=== PATIENT | female | born 1960 | race Caucasian/White ===

== ENCOUNTER 2017-04-27 13:45 | Emergency (ER) | payer OTHER ==
[~2017-04-27] VITALS: Ht 160 cm; Wt 98.9 kg
[~2017-04-27 13:45] MED LIST: AMLODIPINE BESYL5 MG PO; AMLODIPINE-BEN1 EAC4 PO; ATORVASTATIN CA20 MG PO; CITALOPRAM HBR20 MG PO; DIVALPROEX SOD250 M1 PO; DIVALPROEX SOD500 M1 PO; FLEXERIL5 MG PO; GABAPENTIN100 MG PO; GLYBURIDE5 MG PO; HYDROCODON-ACE1 EAC7 PO; KLOR-CON 1010 ME1 PO; LEVO-T88 MCG PO; LEVOTHYROXINE150 MCG PO; LO-DOSE ASPIRIN81 M1 PO; LOPRESSOR100 M1 PO; MELOXICAM7.5 MG PO; METFORMIN HCL500 MG PO; METOPROLOL SUCC25 MG PO; OXYCODONE-APAP1 EACH PO; SEROQUEL XR150 MG PO; SIMVASTATIN20 MG PO; TRAZODONE HCL50 MG PO; VITAMIN D-32000 UNI1 PO; ZESTORETIC 20-1 EAC1 PO
[2017-04-27] MEDS ORDERED: TRAZODONE HCL50 MG PO (15:24)
[2017-04-27] MEDS ORDERED: NAPROSYN500 MG PO (16:39)
[2017-04-27 17:26] VITALS: BP 112/61
== END 2017-04-27 17:26 | disposition home or self-care (01) ==
LOC: EME 13:45
DX: S90.31XA Contusion of right foot, initial encounter (principal); V09.1XXA Pedestrian injured in unspecified nontraffic accident, initial encounter; Y93.K1 Activity, walking an animal; E11.9 Type 2 diabetes mellitus without complications; Z79.84 Long term (current) use of oral hypoglycemic drugs
CPT/HCPCS: 73630; 99281; 99283

== ENCOUNTER 2017-12-08 09:47 | Emergency (ER) | payer OTHER ==
[~2017-12-08] VITALS: Ht 160 cm; Wt 95.6 kg
[~2017-12-08 09:47] MED LIST changes: +NAPROSYN500 MG PO
[2017-12-08 10:10] LABS: HEMATOCRIT 33.3 % (36.0-46.0); HEMOGLOBIN 11.1 G/DL (11.9-15.5); MCH 31.4 PG (29.0-34.0); MCHC 33.3 G/DL (30.0-36.0); MCV 94.3 FL (83-99); PLATELET COUNT 79 K/uL (156-360); RBC DIS.WIDTH-CV 15.2 % (11.8-14.6); RBC DIS.WIDTH-SD 52.7 % (39-53); RED BLOOD COUNT 3.53 M/uL (3.80-5.20); WHITE BLOOD COUNT 5.6 K/uL (4.1-10.2)
[2017-12-08 10:22] LABS: CHLORIDE 108 mEq/L (99-109); POTASSIUM 3.7 mEq/L (3.7-5.4); SODIUM 139 mEq/L (136-147)
[2017-12-08 10:24] LABS: GLUCOSE 100 mg/dL (70-99)
[2017-12-08 10:28] LABS: CREATININE 0.7 mg/dL (0.6-1.3); GFR ESTIMATE (CALCULATED) > 59 mL/min/
[2017-12-08 10:29] LABS: UREA NITROGEN (BUN) 13 mg/dL (9-23)
[2017-12-08 11:03] LABS: TROP-I INTERPRETATION NEGATIVE; TROPONIN-I < 0.01 ng/mL (0.0-0.30)
[2017-12-08 14:16] VITALS: BP 112/54
== END 2017-12-08 14:16 | disposition home or self-care (01) ==
LOC: EME 09:47
DX: R42 Dizziness and giddiness (principal); E78.5 Hyperlipidemia, unspecified; I10 Essential (primary) hypertension; E11.9 Type 2 diabetes mellitus without complications; Z79.84 Long term (current) use of oral hypoglycemic drugs; K74.60 Unspecified cirrhosis of liver; F32.9 Major depressive disorder, single episode, unspecified; F41.9 Anxiety disorder, unspecified; Z88.2 Allergy status to sulfonamides
CPT/HCPCS: 70450; 71046; 80048; 84484; 85027; 93005; 99281; 99285

== ENCOUNTER → 2018-03-03 | Outpatient (CLI) | payer OTHER ==
[~2018-03-03] MED LIST changes: +ALDACTONE50 MG PO; +COLESTIPOL HCL1 GM PO; +CONSTULOSE10 GM/15 M PO; +FEROSUL325 MG PO; +FIORICET 50-301 EAC1 PO; +LASIX40 MG PO; +LEVOXYL100 MCG PO; +NORTRIPTYLINE H25 MG PO; +OMEPRAZOLE40 M1 PO; +RANITIDINE HCL300 MG PO; +REQUIP0.25 MG PO; +ZOFRAN ODT4 MG PO
[2018-03-03 13:45] LABS: TYPE OF FLUID PARACENTESIS
[2018-03-03 14:38] LABS: APPEARANCE CLEAR-YELLOW; BODY FLUID EOSINOPHILS 0 % (0-25); BODY FLUID RBC'S < 1000 /MM^3 (0-100); BODY FLUID WBC'S 249 /MM^3 (0-500); MONONUCLEAR WBC'S 88 %; POLYNUCLEAR WBC'S 12 % (0-25)
== END | disposition home or self-care (01) ==
LOC: RAD 12:03
PROVIDERS: Internal Medicine Gastroenterology
PROC: 0W9G3ZZ Drainage of Peritoneal Cavity, Percutaneous Approach (ICD-10-PCS; principal; 2018-03-03)
DX: R18.8 Other ascites (principal)
CPT/HCPCS: 49083; 87070; 87205; 88108; 88305; 89051

== ENCOUNTER 2018-03-05 15:30 | Emergency (ER) | payer OTHER ==
[~2018-03-05] VITALS: Ht 160 cm; Wt 107.1 kg
[~2018-03-05 15:30] MED LIST changes: -FIORICET 50-301 EAC1 PO; -ZOFRAN ODT4 MG PO
[2018-03-05 16:17] LABS: HEMATOCRIT 27.3 % (36.0-46.0); HEMOGLOBIN 9.4 G/DL (11.9-15.5); MCH 30.1 PG (29.0-34.0); MCHC 34.4 G/DL (30.0-36.0); MCV 87.5 FL (83-99); PLATELET COUNT 87 K/uL (156-360); RED BLOOD COUNT 3.12 M/uL (3.80-5.20); WHITE BLOOD COUNT 9.9 K/uL (4.1-10.2)
[2018-03-05 16:35] LABS: ALBUMIN 2.9 g/dL (3.2-4.8); CHLORIDE 94 mEq/L (99-109); SODIUM 127 mEq/L (136-147)
[2018-03-05 16:37] LABS: GLUCOSE 123 mg/dL (70-99)
[2018-03-05 16:39] LABS: TOTAL BILIRUBIN 5.2 mg/dL (0.0-1.0)
[2018-03-05 16:41] LABS: ALKALINE PHOSPHATASE 159 IU/L (3-129); CREATININE 0.8 mg/dL (0.6-1.3); GFR ESTIMATE (CALCULATED) > 59 mL/min/
[2018-03-05 16:42] LABS: UREA NITROGEN (BUN) 9 mg/dL (9-23)
[2018-03-05 16:43] LABS: AST (GOT) 53 IU/L (2-34)
[2018-03-05 16:44] LABS: ALT (GPT) 32 IU/L (3-49); LIPASE 59 U/L (1.0-51.0)
[2018-03-05] MEDS ORDERED: FIORICET 50-301 EAC1 PO ×2 (17:29→17:31)
[2018-03-05] MEDS ORDERED: ZOFRAN ODT4 MG PO ×2 (17:29→17:31)
[2018-03-05 17:44] VITALS: BP 132/71
== END 2018-03-05 17:50 | disposition home or self-care (01) ==
LOC: EME 15:30
PROVIDERS: Nurse Practitioner Acute Care
DX: R18.8 Other ascites (principal); K72.90 Hepatic failure, unspecified without coma; Z76.82 Awaiting organ transplant status; K74.60 Unspecified cirrhosis of liver; F32.9 Major depressive disorder, single episode, unspecified; E78.5 Hyperlipidemia, unspecified; E11.9 Type 2 diabetes mellitus without complications; Z79.84 Long term (current) use of oral hypoglycemic drugs; I10 Essential (primary) hypertension; F41.9 Anxiety disorder, unspecified; Z88.2 Allergy status to sulfonamides
CPT/HCPCS: 74176; 80053; 83690; 85027; 99281; 99283

== ENCOUNTER 2018-03-12 01:57 | Inpatient (IN) | payer OTHER ==
[~2018-03-12] VITALS: Ht 160 cm; Wt 95.0 kg
[~2018-03-12 01:57] MED LIST changes: +FIORICET 50-301 EAC1 PO; +ZOFRAN ODT4 MG PO
[2018-03-12 02:38] LABS: CHLORIDE 91 mEq/L (99-109); POTASSIUM 4.3 mEq/L (3.7-5.4); SODIUM 124 mEq/L (136-147)
[2018-03-12 02:39] LABS: HEMATOCRIT 29.1 % (36.0-46.0); MCH 29.7 PG (29.0-34.0); MCHC 34.4 G/DL (30.0-36.0); MCV 86.4 FL (83-99); RBC DIS.WIDTH-CV 20.2 % (11.8-14.6); RBC DIS.WIDTH-SD 62.1 % (39-53); RED BLOOD COUNT 3.37 M/uL (3.80-5.20); WHITE BLOOD COUNT 9.5 K/uL (4.1-10.2)
[2018-03-12 02:40] LABS: GLUCOSE 133 mg/dL (70-99); TOTAL PROTEIN 6.4 g/dL (6.4-8.3)
[2018-03-12 02:43] LABS: ALKALINE PHOSPHATASE 174 IU/L (3-129); CREATININE 0.8 mg/dL (0.6-1.3); GFR ESTIMATE (CALCULATED) > 59 mL/min/
[2018-03-12 02:45] LABS: AST (GOT) 67 IU/L (2-34); UREA NITROGEN (BUN) 16 mg/dL (9-23)
[2018-03-12 02:46] LABS: ALT (GPT) 38 IU/L (3-49)
[2018-03-12 02:47] LABS: LIPASE 82 U/L (1.0-51.0)
[2018-03-12 02:49] LABS: TOTAL BILIRUBIN 6.3 mg/dL (0.0-1.0); TROP-I INTERPRETATION NEGATIVE; TROPONIN-I < 0.01 ng/mL (0.0-0.30)
[2018-03-12 03:59] LABS: INTER. NORMALIZED RATIO 1.6
[2018-03-12 04:02] LABS: PTT 33.3 SEC (25-37)
[2018-03-12 04:32] LABS: PLATELET COUNT 59 K/uL (156-360)
[2018-03-12 05:30] LABS: VALPROIC ACID (DEPAKOTE) < 3.0 MCG/ML (50-100)
[2018-03-12 05:36] LABS: HDL CHOLESTEROL 26 MG/DL (Desirable>=50); LDL CHOLESTEROL 78 mg/dL (Desirable<100); NON-HDL CHOLESTEROL 92 mg/dL (Desirable<160); TOTAL CHOLESTEROL 118 mg/dL (Desirable<200); TRIGLYCERIDES 69 MG/DL (Normal: <150)
[2018-03-12 05:58] VITALS: BP 131/64
[2018-03-12 07:33] LABS: BILIRUBIN NEGATIVE; BLOOD NEGATIVE; COLOR AMBER ((YELLOW)); GLUCOSE (STRIP) NEGATIVE; KETONES NEGATIVE; LEUKOCYTES NEGATIVE; NITRITE NEGATIVE; PROTEIN (STRIP) NEGATIVE; SPECIFIC GRAVITY 1.016 (1.000-1.030)
[2018-03-12 07:35] LABS: APPEARANCE CLEAR ((CLEAR)); UCUL ADDED? NO
[2018-03-12 07:54] VITALS: BP 125/65
[2018-03-12 09:58] LABS: HEMOGLOBIN A1c (GLYCOHEMOGLOB) 4.8 % (Below 5.7)
[2018-03-12] MEDS ORDERED: XIFAXAN550 MG PO (11:57)
[2018-03-12] MEDS ORDERED: SEROQUEL100 MG PO (11:58)
[2018-03-12] MEDS ORDERED: REGLAN5 MG PO (11:58)
[2018-03-12] MEDS ORDERED: SEROQUEL50 MG PO (11:59)
[2018-03-12] MEDS ORDERED: OXCARBAZEPINE150 MG PO (12:02)
[2018-03-12] MEDS ORDERED: GABAPENTIN300 MG PO ×2 (12:03)
[2018-03-12] MEDS ORDERED: LOTREL 10/41 CAPSULE PO (12:11)
[2018-03-12 12:12] VITALS: BP 118/56
[2018-03-12 13:04] LABS: TROP-I INTERPRETATION NEGATIVE; TROPONIN-I 0.01 ng/mL (0.0-0.30)
[2018-03-12 13:40] VITALS: BP 117/56
[2018-03-12 16:15] VITALS: BP 115/58
[2018-03-12 18:29] LABS: TROP-I INTERPRETATION NEGATIVE; TROPONIN-I < 0.01 ng/mL (0.0-0.30)
[2018-03-12 21:00] VITALS: BP 121/58
[2018-03-13 00:45] VITALS: BP 125/60
[2018-03-13 03:11] VITALS: BP 106/50
[2018-03-13 08:11] LABS: HEMATOCRIT 25.8 % (36.0-46.0); HEMOGLOBIN 8.7 G/DL (11.9-15.5); MCH 29.8 PG (29.0-34.0); MCHC 33.7 G/DL (30.0-36.0); MCV 88.4 FL (83-99); RBC DIS.WIDTH-CV 20.5 % (11.8-14.6); RBC DIS.WIDTH-SD 65.7 % (39-53); RED BLOOD COUNT 2.92 M/uL (3.80-5.20); WHITE BLOOD COUNT 7.8 K/uL (4.1-10.2)
[2018-03-13 08:31] LABS: BASOPHIL (%) 0.4 % (0-1); EOSINOPHIL (%) 0.6 % (0-5); EOSINOPHIL COUNT 0.1 K/uL (0-0.3); IMMATURE GRANULOCYTE (%) 0.5 % (0.0-0.7); LYMPHOCYTE (%) 26.8 % (15-42); LYMPHOCYTE COUNT 2.1 K/uL (1.0-2.8); MONOCYTE (%) 16.5 % (3-12); MONOCYTE COUNT 1.3 K/uL (0-0.8); NEUTROPHIL (%) 55.2 % (45-76); NEUTROPHIL COUNT 4.3 K/uL (1.8-6.4)
[2018-03-13 08:32] LABS: CHLORIDE 94 MEQ/L (99-109); CREATININE 0.8 MG/DL (0.6-1.3); GFR ESTIMATE (CALCULATED) > 59 mL/min/; GLUCOSE 104 mg/dL (70-99); PHOSPHORUS 2.7 mg/dL (2.5-4.9); SODIUM 125 MEQ/L (136-147); UREA NITROGEN (BUN) 11 mg/dL (9-23)
[2018-03-13 08:33] VITALS: BP 106/53
[2018-03-13 08:56] LABS: ANISOCYTOSIS 2+; MACROCYTES 2+; PLAT.SUFFICIENCY DECREASED
[2018-03-13 09:48] LABS: ALKALINE PHOSPHATASE 118 IU/L (3-129); ALT (GPT) 29 IU/L (3-49); AST (GOT) 56 IU/L (2-34); DIRECT BILIRUBIN 2.2 mg/dL (0.0-0.3); TOTAL BILIRUBIN 6.4 MG/DL (0.0-1.0); TOTAL PROTEIN 5.7 G/DL (6.4-8.3)
[2018-03-13 12:45] VITALS: BP 109/53
[2018-03-13 16:12] VITALS: BP 118/56
[2018-03-13 16:14] LABS: IRON 50 MCG/DL (35-150); TRANSFERRIN (TIBC) 215.9 mg/dL (215-380); TRANSFERRIN SATUR. 23 % (20-55)
[2018-03-13 19:55] VITALS: BP 120/60
[2018-03-14] VITALS (8 sets, daily range): BP systolic 94–122; BP diastolic 51–63
[2018-03-14 05:48] LABS: HEMATOCRIT 23.8 % (36.0-46.0); HEMOGLOBIN 7.9 G/DL (11.9-15.5); MCH 29.7 PG (29.0-34.0); MCHC 33.2 G/DL (30.0-36.0); MCV 89.5 FL (83-99); RBC DIS.WIDTH-CV 20.3 % (11.8-14.6); RBC DIS.WIDTH-SD 66.4 % (39-53); RED BLOOD COUNT 2.66 M/uL (3.80-5.20); WHITE BLOOD COUNT 7.4 K/uL (4.1-10.2)
[2018-03-14 06:10] LABS: CHLORIDE 94 MEQ/L (99-109); CREATININE 0.8 MG/DL (0.6-1.3); GFR ESTIMATE (CALCULATED) > 59 mL/min/; GLUCOSE 103 mg/dL (70-99); POTASSIUM 3.8 MEQ/L (3.7-5.4); SODIUM 125 MEQ/L (136-147); UREA NITROGEN (BUN) 11 mg/dL (9-23)
[2018-03-14 06:50] LABS: IMM.PLATELET FRACTION 11.2 (1-7); PLAT.SUFFICIENCY DECREASED; PLATELET CLUMPS PRESENT - PLATELET COUNTS APPEARS DECREASED
[2018-03-14 06:53] LABS: PLATELET COUNT UNABLE TO REPORT K/uL (156-360)
[2018-03-15 02:38] LABS: STOOL OCCULT BLD 1ST SPECIMEN POSITIVE
[2018-03-15 03:21] VITALS: BP 107/51
[2018-03-15 05:11] LABS: BASOPHIL (%) 0.8 % (0-1); BASOPHIL COUNT 0.1 K/uL (0-0.1); EOSINOPHIL (%) 2.4 % (0-5); EOSINOPHIL COUNT 0.2 K/uL (0-0.3); HEMATOCRIT 23.3 % (36.0-46.0); HEMOGLOBIN 7.8 G/DL (11.9-15.5); IMMATURE GRANULOCYTE (%) 0.8 % (0.0-0.7); LYMPHOCYTE (%) 26.8 % (15-42); LYMPHOCYTE COUNT 1.7 K/uL (1.0-2.8); MCH 29.8 PG (29.0-34.0); MCHC 33.5 G/DL (30.0-36.0); MCV 88.9 FL (83-99); MONOCYTE (%) 15.6 % (3-12); NEUTROPHIL (%) 53.6 % (45-76); NEUTROPHIL COUNT 3.4 K/uL (1.8-6.4); RBC DIS.WIDTH-CV 20.4 % (11.8-14.6); RBC DIS.WIDTH-SD 65.7 % (39-53); RED BLOOD COUNT 2.62 M/uL (3.80-5.20); WHITE BLOOD COUNT 6.3 K/uL (4.1-10.2)
[2018-03-15 05:23] LABS: PLATELET COUNT 52 K/uL (156-360)
[2018-03-15 05:38] LABS: ALBUMIN 2.4 G/DL (3.2-4.8); CHLORIDE 96 MEQ/L (99-109); CREATININE 0.7 MG/DL (0.6-1.3); GFR ESTIMATE (CALCULATED) > 59 mL/min/; GLUCOSE 103 mg/dL (70-99); PHOSPHORUS 2.5 mg/dL (2.5-4.9); POTASSIUM 3.9 MEQ/L (3.7-5.4); SODIUM 125 MEQ/L (136-147); UREA NITROGEN (BUN) 10 mg/dL (9-23)
[2018-03-15 09:20] VITALS: BP 104/59
[2018-03-15 12:28] VITALS: BP 112/56
[2018-03-15 15:39] VITALS: BP 150/63
[2018-03-15 20:45] VITALS: BP 111/85
[2018-03-15 23:11] VITALS: BP 105/68
[2018-03-16 03:20] VITALS: BP 107/69
[2018-03-16 05:29] LABS: BASOPHIL (%) 0.7 % (0-1); BASOPHIL COUNT 0.1 K/uL (0-0.1); EOSINOPHIL (%) 1.4 % (0-5); EOSINOPHIL COUNT 0.1 K/uL (0-0.3); HEMATOCRIT 25.3 % (36.0-46.0); HEMOGLOBIN 8.2 G/DL (11.9-15.5); IMMATURE GRANULOCYTE (%) 0.6 % (0.0-0.7); LYMPHOCYTE (%) 23.2 % (15-42); LYMPHOCYTE COUNT 1.6 K/uL (1.0-2.8); MCH 29.4 PG (29.0-34.0); MCHC 32.4 G/DL (30.0-36.0); MCV 90.7 FL (83-99); MONOCYTE (%) 16.1 % (3-12); MONOCYTE COUNT 1.1 K/uL (0-0.8); PLATELET COUNT 54 K/uL (156-360); RBC DIS.WIDTH-CV 20.1 % (11.8-14.6); RBC DIS.WIDTH-SD 66.4 % (39-53); RED BLOOD COUNT 2.79 M/uL (3.80-5.20); WHITE BLOOD COUNT 6.9 K/uL (4.1-10.2)
[2018-03-16 05:50] LABS: ALBUMIN 2.5 G/DL (3.2-4.8); CHLORIDE 96 MEQ/L (99-109); CREATININE 0.8 MG/DL (0.6-1.3); GFR ESTIMATE (CALCULATED) > 59 mL/min/; GLUCOSE 105 mg/dL (70-99); PHOSPHORUS 3.3 mg/dL (2.5-4.9); POTASSIUM 4.2 MEQ/L (3.7-5.4); SODIUM 127 MEQ/L (136-147); UREA NITROGEN (BUN) 11 mg/dL (9-23)
[2018-03-16 07:48] LABS: ALBUMIN 2.5 G/DL (3.2-4.8); ALKALINE PHOSPHATASE 102 IU/L (3-129); ALT (GPT) 27 IU/L (3-49); AST (GOT) 46 IU/L (2-34); CHLORIDE 96 MEQ/L (99-109); CREATININE 0.8 MG/DL (0.6-1.3); GFR ESTIMATE (CALCULATED) > 59 mL/min/; GLUCOSE 105 mg/dL (70-99); POTASSIUM 4.2 MEQ/L (3.7-5.4); SODIUM 127 MEQ/L (136-147); TOTAL PROTEIN 5.1 G/DL (6.4-8.3); UREA NITROGEN (BUN) 11 mg/dL (9-23)
[2018-03-16 07:49] LABS: TOTAL BILIRUBIN 5.1 MG/DL (0.0-1.0)
[2018-03-16 08:19] VITALS: BP 113/59
[2018-03-16 11:41] VITALS: BP 106/53
[2018-03-16 14:45] VITALS: BP 99/57
[2018-03-16 16:25] VITALS: BP 111/58
[2018-03-16 20:00] VITALS: BP 105/55
[2018-03-17 00:07] VITALS: BP 125/55
[2018-03-17 04:10] VITALS: BP 100/57
[2018-03-17 05:48] LABS: BASOPHIL (%) 0.9 % (0-1); BASOPHIL COUNT 0.1 K/uL (0-0.1); EOSINOPHIL (%) 2.3 % (0-5); EOSINOPHIL COUNT 0.1 K/uL (0-0.3); HEMATOCRIT 24.1 % (36.0-46.0); IMMATURE GRANULOCYTE (%) 0.4 % (0.0-0.7); LYMPHOCYTE (%) 26.4 % (15-42); LYMPHOCYTE COUNT 1.4 K/uL (1.0-2.8); MCH 30.3 PG (29.0-34.0); MCHC 33.2 G/DL (30.0-36.0); MCV 91.3 FL (83-99); MONOCYTE (%) 17.5 % (3-12); MONOCYTE COUNT 0.9 K/uL (0-0.8); NEUTROPHIL (%) 52.5 % (45-76); NEUTROPHIL COUNT 2.8 K/uL (1.8-6.4); RBC DIS.WIDTH-CV 20.4 % (11.8-14.6); RBC DIS.WIDTH-SD 68.3 % (39-53); RED BLOOD COUNT 2.64 M/uL (3.80-5.20); WHITE BLOOD COUNT 5.3 K/uL (4.1-10.2)
[2018-03-17 06:22] LABS: ALBUMIN 2.2 G/DL (3.2-4.8); CHLORIDE 97 MEQ/L (99-109); CREATININE 0.9 MG/DL (0.6-1.3); GFR ESTIMATE (CALCULATED) > 59 mL/min/; GLUCOSE 88 mg/dL (70-99); PHOSPHORUS 2.6 mg/dL (2.5-4.9); POTASSIUM 3.7 MEQ/L (3.7-5.4); SODIUM 130 MEQ/L (136-147); UREA NITROGEN (BUN) 11 mg/dL (9-23)
[2018-03-17 07:43] LABS: IMM.PLATELET FRACTION 8.8 (1-7); PLATELET CLUMPS PRESENT - PLATELET COUNTS APPEARS DECREASED; PLATELET COUNT UNABLE TO REPORT K/uL (156-360)
[2018-03-17 07:56] VITALS: BP 119/64
[2018-03-17] MEDS ORDERED: FUROSEMIDE40 MG PO (11:03)
[2018-03-17] MEDS ORDERED: KRISTALOSE20 GM PO (14:51)
== END 2018-03-17 12:53 | disposition home or self-care (01) | DRG 442 ==
LOC: EME → EDBD 01:57 → 5SOUTH 03:41 → 4EAST 03:41 → EDOF 03:41 → ENRESERV 03:42 → 5SOUTH 05:28 → ENRESERV 12:28 → 4EAST 13:38 → ENRESERV 03-16 17:54 → 5SOUTH 03-16 21:55 → ENRESERV 03-16 21:58 → ENPENDDIS 03-17 11:53 → 5SOUTH 03-17 12:53
PROVIDERS: Emergency Medicine; Hospitalist; Internal Medicine; Internal Medicine Gastroenterology
PROC: 0W9G30Z Drainage of Peritoneal Cavity with Drainage Device, Percutaneous Approach (ICD-10-PCS; principal; 2018-03-12)
PROC: 0DJ08ZZ Inspection of Upper Intestinal Tract, Via Natural or Artificial Opening Endoscopic (ICD-10-PCS; 2018-03-16)
PROC: 0W9G30Z Drainage of Peritoneal Cavity with Drainage Device, Percutaneous Approach (ICD-10-PCS; 2018-03-16)
DX: K72.00 Acute and subacute hepatic failure without coma (principal); E87.1 Hypo-osmolality and hyponatremia; E87.6 Hypokalemia; R18.8 Other ascites; E87.70 Fluid overload, unspecified; D69.6 Thrombocytopenia, unspecified; R79.1 Abnormal coagulation profile; Z76.82 Awaiting organ transplant status; E11.42 Type 2 diabetes mellitus with diabetic polyneuropathy; K74.60 Unspecified cirrhosis of liver; K76.6 Portal hypertension; K31.89 Other diseases of stomach and duodenum; I10 Essential (primary) hypertension; E78.00 Pure hypercholesterolemia, unspecified; D64.9 Anemia, unspecified; G25.81 Restless legs syndrome; F31.9 Bipolar disorder, unspecified; M19.90 Unspecified osteoarthritis, unspecified site; F41.9 Anxiety disorder, unspecified; R19.5 Other fecal abnormalities; R55 Syncope and collapse; Z91.81 History of falling; Z87.891 Personal history of nicotine dependence
CPT/HCPCS: 36415; 49083; 70450; 70551; 71045; 76705; 80048; 80053; 80061; 80069; 80076; 80164; 81003; 82140; 82272; 82948; 83036; 83540; 83690; 83880; 84295; 84466; 84484; 85025; 85027; 85610; 85651; 85730; 86850; 86900; 86901; 93005; 95819; 97530 GO; 99281; 99285; J1170; J1815; J2405; J7030; P9047

== ENCOUNTER 2018-03-18 17:15 | Emergency (ER) | payer OTHER ==
[~2018-03-18] VITALS: Ht 160 cm; Wt 97.4 kg
[~2018-03-18 17:15] MED LIST changes: +FUROSEMIDE40 MG PO; +GABAPENTIN300 MG PO; +KRISTALOSE20 GM PO; +LOTREL 10/41 CAPSULE PO; +OXCARBAZEPINE150 MG PO; +REGLAN5 MG PO; +SEROQUEL100 MG PO; +SEROQUEL50 MG PO; -VITAMIN D-32000 UNI1 PO; +VITAMIN D2000 UNIT PO; +XIFAXAN550 MG PO
[2018-03-18 17:56] LABS: HEMATOCRIT 28.2 % (36.0-46.0); HEMOGLOBIN 9.7 G/DL (11.9-15.5); MCH 30.7 PG (29.0-34.0); MCHC 34.4 G/DL (30.0-36.0); MCV 89.2 FL (83-99); RBC DIS.WIDTH-CV 19.9 % (11.8-14.6); RBC DIS.WIDTH-SD 65.2 % (39-53); RED BLOOD COUNT 3.16 M/uL (3.80-5.20); WHITE BLOOD COUNT 9.6 K/uL (4.1-10.2)
[2018-03-18 18:01] LABS: PLATELET COUNT 79 K/uL (156-360)
[2018-03-18 18:07] LABS: ALBUMIN 2.8 g/dL (3.2-4.8); CHLORIDE 94 mEq/L (99-109); SODIUM 126 mEq/L (136-147)
[2018-03-18 18:09] LABS: GLUCOSE 130 mg/dL (70-99)
[2018-03-18 18:10] LABS: TOTAL PROTEIN 5.8 g/dL (6.4-8.3)
[2018-03-18 18:13] LABS: ALKALINE PHOSPHATASE 161 IU/L (3-129); CREATININE 0.8 mg/dL (0.6-1.3); GFR ESTIMATE (CALCULATED) > 59 mL/min/
[2018-03-18 18:14] LABS: UREA NITROGEN (BUN) 10 mg/dL (9-23)
[2018-03-18 18:15] LABS: AST (GOT) 74 IU/L (2-34)
[2018-03-18 18:16] LABS: ALT (GPT) 42 IU/L (3-49)
[2018-03-18 18:22] LABS: TOTAL BILIRUBIN 4.5 mg/dL (0.0-1.0)
[2018-03-18 19:45] VITALS: BP 122/64
== END 2018-03-18 19:45 | disposition home or self-care (01) ==
LOC: EME 17:15
PROVIDERS: Emergency Medicine
DX: K72.90 Hepatic failure, unspecified without coma (principal); D64.9 Anemia, unspecified; R51 Headache; K74.60 Unspecified cirrhosis of liver; E11.42 Type 2 diabetes mellitus with diabetic polyneuropathy; I10 Essential (primary) hypertension; E78.5 Hyperlipidemia, unspecified; F31.9 Bipolar disorder, unspecified; F41.9 Anxiety disorder, unspecified; F32.9 Major depressive disorder, single episode, unspecified; Z90.49 Acquired absence of other specified parts of digestive tract; Z88.2 Allergy status to sulfonamides
CPT/HCPCS: 80053; 82140; 85027; 99281; 99284

== ENCOUNTER 2018-03-20 20:26 | Emergency (ER) | payer OTHER ==
[~2018-03-20] VITALS: Ht 160 cm; Wt 96.8 kg
[~2018-03-20 20:26] MED LIST changes: +VITAMIN D-32000 UNI1 PO; -VITAMIN D2000 UNIT PO
[2018-03-20 23:23] VITALS: BP 112/78
== END 2018-03-20 23:23 | disposition home or self-care (01) ==
LOC: EME 20:26
PROC: 0HQ7XZZ Repair Abdomen Skin, External Approach (ICD-10-PCS; principal; 2018-03-20)
DX: T81.89XA Other complications of procedures, not elsewhere classified, initial encounter (principal); E78.5 Hyperlipidemia, unspecified; K74.60 Unspecified cirrhosis of liver; F32.9 Major depressive disorder, single episode, unspecified; I10 Essential (primary) hypertension; F41.9 Anxiety disorder, unspecified; Z88.2 Allergy status to sulfonamides
CPT/HCPCS: 99281; 99283

== ENCOUNTER 2018-03-30 05:44 | Inpatient (IN) | payer OTHER ==
[~2018-03-30] VITALS: Ht 160 cm; Wt 107.2 kg
[~2018-03-30 05:44] MED LIST changes: -VITAMIN D-32000 UNI1 PO; +VITAMIN D2000 UNIT PO
[2018-03-30 06:45] LABS: BASOPHIL (%) 0.4 % (0-1); EOSINOPHIL COUNT 0.2 K/uL (0-0.3); HEMATOCRIT 28.9 % (36.0-46.0); HEMOGLOBIN 10.1 G/DL (11.9-15.5); IMMATURE GRANULOCYTE (%) 1.6 % (0.0-0.7); LYMPHOCYTE (%) 19.8 % (15-42); MCH 30.5 PG (29.0-34.0); MCHC 34.9 G/DL (30.0-36.0); MCV 87.3 FL (83-99); MONOCYTE (%) 13.7 % (3-12); MONOCYTE COUNT 1.4 K/uL (0-0.8); NEUTROPHIL (%) 62.5 % (45-76); NEUTROPHIL COUNT 6.1 K/uL (1.8-6.4); PLATELET COUNT 101 K/uL (156-360); RBC DIS.WIDTH-SD 63.4 % (39-53); RED BLOOD COUNT 3.31 M/uL (3.80-5.20); WHITE BLOOD COUNT 9.8 K/uL (4.1-10.2)
[2018-03-30 06:50] LABS: INTER. NORMALIZED RATIO 1.6
[2018-03-30 07:22] LABS: ALBUMIN 2.8 G/DL (3.2-4.8); ALKALINE PHOSPHATASE 172 IU/L (3-129); ALT (GPT) 48 IU/L (3-49); AST (GOT) 71 IU/L (2-34); CHLORIDE 87 MEQ/L (99-109); CREATININE 0.9 MG/DL (0.6-1.3); GFR ESTIMATE (CALCULATED) > 59 mL/min/; GLUCOSE 110 mg/dL (70-99); LIPASE 95 U/L (1.0-51.0); POTASSIUM 4.8 MEQ/L (3.7-5.4); TOTAL BILIRUBIN 6.2 MG/DL (0.0-1.0); TOTAL PROTEIN 6.2 G/DL (6.4-8.3); UREA NITROGEN (BUN) 22 mg/dL (9-23)
[2018-03-30 07:23] LABS: SODIUM 117 MEQ/L (136-147)
[2018-03-30 10:27] VITALS: BP 114/56
[2018-03-30 12:42] LABS: CHLORIDE 89 MEQ/L (99-109); CREATININE 0.8 MG/DL (0.6-1.3); GFR ESTIMATE (CALCULATED) > 59 mL/min/; GLUCOSE 156 mg/dL (70-99); POTASSIUM 4.7 MEQ/L (3.7-5.4); UREA NITROGEN (BUN) 21 mg/dL (9-23)
[2018-03-30 12:46] LABS: SODIUM 117 MEQ/L (136-147)
[2018-03-30 15:06] LABS: TYPE OF FLUID PERITONEAL
[2018-03-30 15:48] LABS: BODY FLUID RBC'S < 1000 /MM^3 (0-100); BODY FLUID WBC'S 173 /MM^3 (0-500)
[2018-03-30 16:11] LABS: BODY FLUID EOSINOPHILS 0 % (0-25); MONONUCLEAR WBC'S 93 %; POLYNUCLEAR WBC'S 7 % (0-25)
[2018-03-30 16:21] LABS: BODY FLUID AMYLASE < 10 U/L
[2018-03-30 16:24] VITALS: BP 108/51
[2018-03-30 18:49] LABS: CHLORIDE 89 MEQ/L (99-109); CREATININE 0.8 MG/DL (0.6-1.3); GFR ESTIMATE (CALCULATED) > 59 mL/min/; GLUCOSE 144 mg/dL (70-99); POTASSIUM 4.4 MEQ/L (3.7-5.4); SODIUM 116 MEQ/L (136-147); UREA NITROGEN (BUN) 21 mg/dL (9-23)
[2018-03-30 19:10] LABS: APPEARANCE SL.HAZY ((CLEAR)); BILIRUBIN NEGATIVE; BLOOD NEGATIVE; COLOR AMBER ((YELLOW)); GLUCOSE (STRIP) NEGATIVE; KETONES NEGATIVE; LEUKOCYTES NEGATIVE; NITRITE NEGATIVE; PROTEIN (STRIP) NEGATIVE; SPECIFIC GRAVITY 1.015 (1.000-1.030)
[2018-03-30 19:18] LABS: BODY FLUID LDH < 25 IU/L; BODY FLUID PROTEIN < 3.0 G/DL
[2018-03-30 19:34] LABS: BACTERIA RARE /HPF; EPITHELIAL CELLS RARE /HPF; MUCUS TRACE /LPF; RED BLOOD CELLS 0-5 /HPF (0-5); UCUL ADDED? NO; WHITE BLOOD CELLS 0-5 /HPF (0-5)
[2018-03-30 19:43] VITALS: BP 111/58
[2018-03-30 20:54] LABS: CHLORIDE 90 MEQ/L (99-109); CREATININE 0.9 MG/DL (0.6-1.3); GFR ESTIMATE (CALCULATED) > 59 mL/min/; GLUCOSE 141 mg/dL (70-99); POTASSIUM 4.3 MEQ/L (3.7-5.4); UREA NITROGEN (BUN) 21 mg/dL (9-23)
[2018-03-30 20:56] LABS: SODIUM 116 MEQ/L (136-147)
[2018-03-31] VITALS (7 sets, daily range): BP systolic 103–144; BP diastolic 53–67
[2018-03-31 00:41] LABS: CHLORIDE 91 mEq/L (99-109); POTASSIUM 3.9 mEq/L (3.7-5.4)
[2018-03-31 00:42] LABS: GLUCOSE 141 mg/dL (70-99)
[2018-03-31 00:46] LABS: CREATININE 0.8 mg/dL (0.6-1.3); GFR ESTIMATE (CALCULATED) > 59 mL/min/
[2018-03-31 00:47] LABS: UREA NITROGEN (BUN) 19 mg/dL (9-23)
[2018-03-31 00:48] LABS: SODIUM 118 mEq/L (136-147)
[2018-03-31 05:54] LABS: BASOPHIL (%) 0.4 % (0-1); EOSINOPHIL (%) 2.6 % (0-5); EOSINOPHIL COUNT 0.3 K/uL (0-0.3); HEMATOCRIT 27.6 % (36.0-46.0); HEMOGLOBIN 9.5 G/DL (11.9-15.5); IMMATURE GRANULOCYTE (%) 1.6 % (0.0-0.7); LYMPHOCYTE COUNT 1.8 K/uL (1.0-2.8); MCH 30.2 PG (29.0-34.0); MCHC 34.4 G/DL (30.0-36.0); MCV 87.6 FL (83-99); MONOCYTE (%) 14.7 % (3-12); MONOCYTE COUNT 1.4 K/uL (0-0.8); NEUTROPHIL (%) 62.7 % (45-76); NEUTROPHIL COUNT 6.2 K/uL (1.8-6.4); PLATELET COUNT 78 K/uL (156-360); RBC DIS.WIDTH-CV 20.1 % (11.8-14.6); RBC DIS.WIDTH-SD 64.4 % (39-53); RED BLOOD COUNT 3.15 M/uL (3.80-5.20); WHITE BLOOD COUNT 9.8 K/uL (4.1-10.2)
[2018-03-31 08:05] LABS: ALBUMIN 2.5 G/DL (3.2-4.8); ALKALINE PHOSPHATASE 156 IU/L (3-129); ALT (GPT) 44 IU/L (3-49); AST (GOT) 64 IU/L (2-34); CHLORIDE 91 MEQ/L (99-109); CREATININE 0.8 MG/DL (0.6-1.3); GFR ESTIMATE (CALCULATED) > 59 mL/min/; GLUCOSE 127 mg/dL (70-99); POTASSIUM 4.2 MEQ/L (3.7-5.4); TOTAL BILIRUBIN 5.3 MG/DL (0.0-1.0); TOTAL PROTEIN 5.3 G/DL (6.4-8.3); UREA NITROGEN (BUN) 18 mg/dL (9-23); URIC ACID 4.7 mg/dL (3.1-9.2)
[2018-03-31 08:06] LABS: SODIUM 118 MEQ/L (136-147)
[2018-03-31 09:18] LABS: CHLORIDE 91 MEQ/L (99-109); CREATININE 0.8 MG/DL (0.6-1.3); GFR ESTIMATE (CALCULATED) > 59 mL/min/; GLUCOSE 123 mg/dL (70-99); POTASSIUM 4.6 MEQ/L (3.7-5.4); SODIUM 121 MEQ/L (136-147); UREA NITROGEN (BUN) 18 mg/dL (9-23)
[2018-03-31 09:49] LABS: THYROTROPIN (TSH) 2.8 MIU/L (0.4-5.5)
[2018-03-31] MEDS ORDERED: AMLODIPINE-BEN1 EAC4 PO (10:06)
[2018-03-31] MEDS ORDERED: SPIRONOLACTONE25 MG PO (10:07)
[2018-03-31] MEDS ORDERED: LACTULOSE10 GM/151 PO (10:13)
[2018-03-31] MEDS ORDERED: METFORMIN HCL500 MG PO (10:13)
[2018-03-31 12:54] LABS: CHLORIDE 89 MEQ/L (99-109); CREATININE 0.9 MG/DL (0.6-1.3); GFR ESTIMATE (CALCULATED) > 59 mL/min/; GLUCOSE 181 mg/dL (70-99); POTASSIUM 3.8 MEQ/L (3.7-5.4); SODIUM 118 MEQ/L (136-147); UREA NITROGEN (BUN) 18 mg/dL (9-23)
[2018-03-31 16:31] LABS: CHLORIDE 90 MEQ/L (99-109); CREATININE 0.8 MG/DL (0.6-1.3); GFR ESTIMATE (CALCULATED) > 59 mL/min/; GLUCOSE 152 mg/dL (70-99); POTASSIUM 4.2 MEQ/L (3.7-5.4); UREA NITROGEN (BUN) 18 mg/dL (9-23)
[2018-03-31 16:40] LABS: SODIUM 118 MEQ/L (136-147)
[2018-03-31 20:36] LABS: CHLORIDE 91 MEQ/L (99-109); CREATININE 0.8 MG/DL (0.6-1.3); GFR ESTIMATE (CALCULATED) > 59 mL/min/; GLUCOSE 188 mg/dL (70-99); POTASSIUM 4.1 MEQ/L (3.7-5.4); UREA NITROGEN (BUN) 16 mg/dL (9-23)
[2018-03-31 20:37] LABS: SODIUM 117 MEQ/L (136-147)
[2018-03-31 22:39] LABS: APPEARANCE SL.HAZY ((CLEAR)); BILIRUBIN NEGATIVE; BLOOD NEGATIVE; COLOR AMBER ((YELLOW)); GLUCOSE (STRIP) NEGATIVE; KETONES NEGATIVE; LEUKOCYTES NEGATIVE; NITRITE NEGATIVE; PROTEIN (STRIP) NEGATIVE; SPECIFIC GRAVITY 1.014 (1.000-1.030)
[2018-03-31 22:46] LABS: BACTERIA 1+ /HPF; EPITHELIAL CELLS RARE /HPF; MUCUS TRACE /LPF; RED BLOOD CELLS 0-5 /HPF (0-5); WHITE BLOOD CELLS 0-5 /HPF (0-5)
[2018-04-01 03:12] LABS: CHLORIDE 92 mEq/L (99-109); POTASSIUM 3.6 mEq/L (3.7-5.4); SODIUM 116 mEq/L (136-147)
[2018-04-01 03:13] LABS: GLUCOSE 175 mg/dL (70-99)
[2018-04-01 03:17] LABS: CREATININE 0.7 mg/dL (0.6-1.3); GFR ESTIMATE (CALCULATED) > 59 mL/min/
[2018-04-01 03:18] LABS: UREA NITROGEN (BUN) 15 mg/dL (9-23)
[2018-04-01 03:48] VITALS: BP 110/54
[2018-04-01 07:27] LABS: BASOPHIL (%) 0.5 % (0-1); EOSINOPHIL (%) 3.4 % (0-5); EOSINOPHIL COUNT 0.3 K/uL (0-0.3); HEMATOCRIT 24.9 % (36.0-46.0); HEMOGLOBIN 8.6 G/DL (11.9-15.5); IMMATURE GRANULOCYTE (%) 1.9 % (0.0-0.7); LYMPHOCYTE COUNT 1.9 K/uL (1.0-2.8); MCH 30.5 PG (29.0-34.0); MCHC 34.5 G/DL (30.0-36.0); MCV 88.3 FL (83-99); MONOCYTE (%) 12.2 % (3-12); NEUTROPHIL COUNT 5.1 K/uL (1.8-6.4); NRBC (%) 0.2 /100 WBC (0-0); PLATELET COUNT 66 K/uL (156-360); RBC DIS.WIDTH-CV 19.9 % (11.8-14.6); RBC DIS.WIDTH-SD 64.2 % (39-53); RED BLOOD COUNT 2.82 M/uL (3.80-5.20); WHITE BLOOD COUNT 8.5 K/uL (4.1-10.2)
[2018-04-01 07:35] VITALS: BP 109/53
[2018-04-01 08:15] LABS: CHLORIDE 93 MEQ/L (99-109); CREATININE 0.7 MG/DL (0.6-1.3); GFR ESTIMATE (CALCULATED) > 59 mL/min/; POTASSIUM 4.1 MEQ/L (3.7-5.4); SODIUM 120 MEQ/L (136-147); UREA NITROGEN (BUN) 14 mg/dL (9-23)
[2018-04-01 08:16] LABS: GLUCOSE 101 mg/dL (70-99)
[2018-04-01 08:56] LABS: COMMENTS - BLOOD GASES A+C+; DEVICE RA; SITE RR
[2018-04-01 08:57] LABS: BASE EXCESS -4.4 mEq/L (-3 to +3); BICARBONATE 19.2 mEq/L (22-26); CARBOXY HGB 2.1 % (0-5); METHEMOGLOBIN 1.3 % (0-1.5); O2 SATURATION (CALCULATED) 96.8 % (95-99); PCO2 29 mm Hg (35-45); PO2 67 mm Hg (80-100); TOTAL RESP RATE 17 resp/min; pH 7.43 (7.35-7.45)
[2018-04-01 11:16] VITALS: BP 125/61
[2018-04-01 13:05] LABS: CHLORIDE 93 MEQ/L (99-109); CREATININE 0.6 MG/DL (0.6-1.3); GFR ESTIMATE (CALCULATED) > 59 mL/min/; POTASSIUM 3.9 MEQ/L (3.7-5.4); UREA NITROGEN (BUN) 12 mg/dL (9-23)
[2018-04-01 13:10] LABS: GLUCOSE 185 mg/dL (70-99); SODIUM 118 MEQ/L (136-147)
[2018-04-01 15:28] VITALS: BP 117/59
[2018-04-01 16:33] LABS: CHLORIDE 93 MEQ/L (99-109); CREATININE 0.6 MG/DL (0.6-1.3); GFR ESTIMATE (CALCULATED) > 59 mL/min/; GLUCOSE 144 mg/dL (70-99); POTASSIUM 3.9 MEQ/L (3.7-5.4); SODIUM 120 MEQ/L (136-147); UREA NITROGEN (BUN) 12 mg/dL (9-23)
[2018-04-01 19:18] VITALS: BP 121/64
[2018-04-01 21:39] LABS: CHLORIDE 93 MEQ/L (99-109); CREATININE 0.7 MG/DL (0.6-1.3); GFR ESTIMATE (CALCULATED) > 59 mL/min/; GLUCOSE 164 mg/dL (70-99); SODIUM 118 MEQ/L (136-147); UREA NITROGEN (BUN) 10 mg/dL (9-23)
[2018-04-02] VITALS (7 sets, daily range): BP systolic 112–126; BP diastolic 51–70
[2018-04-02 07:35] LABS: BASOPHIL (%) 0.4 % (0-1); EOSINOPHIL (%) 2.6 % (0-5); EOSINOPHIL COUNT 0.2 K/uL (0-0.3); HEMATOCRIT 26.1 % (36.0-46.0); HEMOGLOBIN 8.8 G/DL (11.9-15.5); IMMATURE GRANULOCYTE (%) 1.5 % (0.0-0.7); LYMPHOCYTE COUNT 1.2 K/uL (1.0-2.8); MCH 30.1 PG (29.0-34.0); MCHC 33.7 G/DL (30.0-36.0); MCV 89.4 FL (83-99); MONOCYTE COUNT 0.8 K/uL (0-0.8); NEUTROPHIL (%) 66.5 % (45-76); NEUTROPHIL COUNT 4.5 K/uL (1.8-6.4); PLATELET COUNT 71 K/uL (156-360); RBC DIS.WIDTH-CV 19.9 % (11.8-14.6); RBC DIS.WIDTH-SD 65.6 % (39-53); RED BLOOD COUNT 2.92 M/uL (3.80-5.20); WHITE BLOOD COUNT 6.8 K/uL (4.1-10.2)
[2018-04-02 08:02] LABS: ALBUMIN 3.1 G/DL (3.2-4.8); ALKALINE PHOSPHATASE 145 IU/L (3-129); ALT (GPT) 37 IU/L (3-49); AST (GOT) 53 IU/L (2-34); CHLORIDE 97 MEQ/L (99-109); CREATININE 0.6 MG/DL (0.6-1.3); GFR ESTIMATE (CALCULATED) > 59 mL/min/; GLUCOSE 125 mg/dL (70-99); UREA NITROGEN (BUN) 8 mg/dL (9-23)
[2018-04-02 08:07] LABS: SODIUM 125 MEQ/L (136-147); TOTAL BILIRUBIN 3.5 MG/DL (0.0-1.0)
[2018-04-02 21:36] LABS: ALBUMIN 3.2 G/DL (3.2-4.8); ALKALINE PHOSPHATASE 173 IU/L (3-129); ALT (GPT) 46 IU/L (3-49); AST (GOT) 66 IU/L (2-34); CHLORIDE 95 MEQ/L (99-109); CREATININE 0.7 MG/DL (0.6-1.3); GFR ESTIMATE (CALCULATED) > 59 mL/min/; GLUCOSE 152 mg/dL (70-99); POTASSIUM 3.9 MEQ/L (3.7-5.4); SODIUM 123 MEQ/L (136-147); TOTAL BILIRUBIN 3.6 MG/DL (0.0-1.0); TOTAL PROTEIN 5.3 G/DL (6.4-8.3); UREA NITROGEN (BUN) 7 mg/dL (9-23)
[2018-04-03 04:00] VITALS: BP 120/59
[2018-04-03 05:22] LABS: BASOPHIL (%) 0.5 % (0-1); EOSINOPHIL (%) 2.4 % (0-5); EOSINOPHIL COUNT 0.2 K/uL (0-0.3); HEMATOCRIT 25.4 % (36.0-46.0); HEMOGLOBIN 8.7 G/DL (11.9-15.5); IMMATURE GRANULOCYTE (%) 0.6 % (0.0-0.7); LYMPHOCYTE (%) 15.8 % (15-42); LYMPHOCYTE COUNT 1.3 K/uL (1.0-2.8); MCH 30.5 PG (29.0-34.0); MCHC 34.3 G/DL (30.0-36.0); MCV 89.1 FL (83-99); MONOCYTE (%) 11.3 % (3-12); MONOCYTE COUNT 0.9 K/uL (0-0.8); NEUTROPHIL (%) 69.4 % (45-76); NEUTROPHIL COUNT 5.7 K/uL (1.8-6.4); PLATELET COUNT 70 K/uL (156-360); RBC DIS.WIDTH-CV 20.7 % (11.8-14.6); RBC DIS.WIDTH-SD 66.2 % (39-53); RED BLOOD COUNT 2.85 M/uL (3.80-5.20); WHITE BLOOD COUNT 8.2 K/uL (4.1-10.2)
[2018-04-03 06:07] LABS: ALBUMIN 2.8 G/DL (3.2-4.8); ALKALINE PHOSPHATASE 148 IU/L (3-129); ALT (GPT) 43 IU/L (3-49); AST (GOT) 64 IU/L (2-34); CHLORIDE 97 MEQ/L (99-109); CREATININE 0.6 MG/DL (0.6-1.3); GFR ESTIMATE (CALCULATED) > 59 mL/min/; GLUCOSE 142 mg/dL (70-99); POTASSIUM 3.7 MEQ/L (3.7-5.4); SODIUM 125 MEQ/L (136-147); TOTAL BILIRUBIN 3.3 MG/DL (0.0-1.0); TOTAL PROTEIN 4.6 G/DL (6.4-8.3); UREA NITROGEN (BUN) 6 mg/dL (9-23)
[2018-04-03 07:35] VITALS: BP 123/59
[2018-04-03 11:28] VITALS: BP 123/58
[2018-04-03 16:00] VITALS: BP 130/69
[2018-04-03 17:36] LABS: C DIFF TOXIN NEGATIVE (NEGATIVE)
[2018-04-03 20:00] VITALS: BP 111/61
[2018-04-04] VITALS: BP 119/58
[2018-04-04 04:03] VITALS: BP 106/53
[2018-04-04 05:56] LABS: BASOPHIL (%) 0.4 % (0-1); EOSINOPHIL (%) 2.3 % (0-5); EOSINOPHIL COUNT 0.2 K/uL (0-0.3); HEMATOCRIT 26.2 % (36.0-46.0); HEMOGLOBIN 8.8 G/DL (11.9-15.5); IMMATURE GRANULOCYTE (%) 0.8 % (0.0-0.7); LYMPHOCYTE (%) 11.9 % (15-42); LYMPHOCYTE COUNT 1.1 K/uL (1.0-2.8); MCHC 33.6 G/DL (30.0-36.0); MCV 89.4 FL (83-99); MONOCYTE (%) 11.2 % (3-12); NEUTROPHIL (%) 73.4 % (45-76); NEUTROPHIL COUNT 6.8 K/uL (1.8-6.4); PLATELET COUNT 65 K/uL (156-360); RBC DIS.WIDTH-CV 20.7 % (11.8-14.6); RBC DIS.WIDTH-SD 67.4 % (39-53); RED BLOOD COUNT 2.93 M/uL (3.80-5.20); WHITE BLOOD COUNT 9.3 K/uL (4.1-10.2)
[2018-04-04 06:40] LABS: ALBUMIN 3.1 G/DL (3.2-4.8); ALKALINE PHOSPHATASE 184 IU/L (3-129); ALT (GPT) 46 IU/L (3-49); AST (GOT) 68 IU/L (2-34); CHLORIDE 94 MEQ/L (99-109); CREATININE 0.7 MG/DL (0.6-1.3); GFR ESTIMATE (CALCULATED) > 59 mL/min/; GLUCOSE 129 mg/dL (70-99); POTASSIUM 3.8 MEQ/L (3.7-5.4); SODIUM 123 MEQ/L (136-147); TOTAL BILIRUBIN 3.6 MG/DL (0.0-1.0); TOTAL PROTEIN 4.9 G/DL (6.4-8.3); UREA NITROGEN (BUN) 6 mg/dL (9-23)
[2018-04-04 07:12] VITALS: BP 105/58
[2018-04-04 12:13] VITALS: BP 124/69
[2018-04-04 16:16] VITALS: BP 118/60
[2018-04-04 20:00] VITALS: BP 128/65; BP 135/67
[2018-04-05] VITALS: BP 124/62
[2018-04-05 04:00] VITALS: BP 125/83
[2018-04-05 08:06] VITALS: BP 113/56
[2018-04-05 11:46] LABS: HEMATOCRIT 28.4 % (36.0-46.0); HEMOGLOBIN 9.6 G/DL (11.9-15.5); MCH 30.4 PG (29.0-34.0); MCHC 33.8 G/DL (30.0-36.0); MCV 89.9 FL (83-99); PLATELET COUNT 67 K/uL (156-360); RBC DIS.WIDTH-CV 20.9 % (11.8-14.6); RBC DIS.WIDTH-SD 68.3 % (39-53); RED BLOOD COUNT 3.16 M/uL (3.80-5.20); WHITE BLOOD COUNT 11.2 K/uL (4.1-10.2)
[2018-04-05 12:08] LABS: ALBUMIN 3.1 G/DL (3.2-4.8); CHLORIDE 93 MEQ/L (99-109); CREATININE 0.6 MG/DL (0.6-1.3); GFR ESTIMATE (CALCULATED) > 59 mL/min/; GLUCOSE 169 mg/dL (70-99); PHOSPHORUS 3.2 mg/dL (2.5-4.9); POTASSIUM 3.5 MEQ/L (3.7-5.4); SODIUM 124 MEQ/L (136-147); UREA NITROGEN (BUN) 8 mg/dL (9-23)
[2018-04-05 16:02] VITALS: BP 127/66
[2018-04-05 22:18] LABS: ALBUMIN 2.8 G/DL (3.2-4.8); ALKALINE PHOSPHATASE 200 IU/L (3-129); ALT (GPT) 50 IU/L (3-49); AST (GOT) 67 IU/L (2-34); CHLORIDE 95 MEQ/L (99-109); CREATININE 0.7 MG/DL (0.6-1.3); DIRECT BILIRUBIN 1.4 mg/dL (0.0-0.3); GFR ESTIMATE (CALCULATED) > 59 mL/min/; GLUCOSE 163 mg/dL (70-99); LIPASE 65 U/L (1.0-51.0); POTASSIUM 3.5 MEQ/L (3.7-5.4); SODIUM 125 MEQ/L (136-147); TOTAL BILIRUBIN 2.9 MG/DL (0.0-1.0); TOTAL PROTEIN 4.7 G/DL (6.4-8.3); UREA NITROGEN (BUN) 9 mg/dL (9-23)
[2018-04-05 23:35] LABS: APPEARANCE SL.HAZY ((CLEAR)); BILIRUBIN NEGATIVE; BLOOD SMALL; COLOR YELLOW ((YELLOW)); GLUCOSE (STRIP) NEGATIVE; KETONES NEGATIVE; LEUKOCYTES TRACE; NITRITE NEGATIVE; PROTEIN (STRIP) NEGATIVE; UROBILINOGEN 0.2 MG/DL (0.2-1.0)
[2018-04-05 23:37] LABS: BACTERIA RARE /HPF; EPITHELIAL CELLS RARE /HPF; MUCUS NONE SEEN /LPF; RED BLOOD CELLS 0-5 /HPF (0-5); UCUL ADDED? YES
[2018-04-06 00:37] VITALS: BP 114/60
[2018-04-06 07:10] LABS: ALBUMIN 2.7 G/DL (3.2-4.8); CHLORIDE 96 MEQ/L (99-109); CREATININE 0.6 MG/DL (0.6-1.3); GFR ESTIMATE (CALCULATED) > 59 mL/min/; PHOSPHORUS 2.9 mg/dL (2.5-4.9); POTASSIUM 3.7 MEQ/L (3.7-5.4); SODIUM 127 MEQ/L (136-147); UREA NITROGEN (BUN) 9 mg/dL (9-23)
[2018-04-06 07:13] LABS: GLUCOSE 100 mg/dL (70-99)
[2018-04-06 07:59] VITALS: BP 122/59
[2018-04-06] MEDS ORDERED: CEFTIN500 MG PO (13:14)
[2018-04-06] MEDS ORDERED: TRAMADOL HCL50 MG PO (13:19)
[2018-04-06] MEDS ORDERED: SAMSCA30 MG PO (13:24)
[2018-04-06] MEDS ORDERED: SPIRONOLACTONE50 MG PO (13:24)
[2018-04-06] MEDS ORDERED: FUROSEMIDE40 MG PO (13:24)
== END 2018-04-06 16:58 | DRG 442 ==
LOC: EME 05:44 → 5SOUTH 08:37 → EDOF 08:37 → ENRESERV 08:38 → 5SOUTH 09:55
PROVIDERS: Emergency Medicine; Hospitalist; Internal Medicine Nephrology; Physician Assistant
PROC: 0W9G3ZZ Drainage of Peritoneal Cavity, Percutaneous Approach (ICD-10-PCS; principal; 2018-03-30)
DX: K72.90 Hepatic failure, unspecified without coma (principal); E22.2 Syndrome of inappropriate secretion of antidiuretic hormone; T45.0X5A Adverse effect of antiallergic and antiemetic drugs, initial encounter; T42.1X5A Adverse effect of iminostilbenes, initial encounter; T42.6X5A Adverse effect of other antiepileptic and sedative-hypnotic drugs, initial encounter; T46.4X5A Adverse effect of angiotensin-converting-enzyme inhibitors, initial encounter; T50.0X5A Adverse effect of mineralocorticoids and their antagonists, initial encounter; T43.225A Adverse effect of selective serotonin reuptake inhibitors, initial encounter; T43.595A Adverse effect of other antipsychotics and neuroleptics, initial encounter; K74.69 Other cirrhosis of liver; E88.81 Metabolic syndrome and other insulin resistance; K75.81 Nonalcoholic steatohepatitis (NASH); K76.6 Portal hypertension; R18.8 Other ascites; N39.0 Urinary tract infection, site not specified; R32 Unspecified urinary incontinence; R33.9 Retention of urine, unspecified; D64.9 Anemia, unspecified; D69.6 Thrombocytopenia, unspecified; D68.9 Coagulation defect, unspecified; F31.9 Bipolar disorder, unspecified; I10 Essential (primary) hypertension; E78.5 Hyperlipidemia, unspecified; E11.42 Type 2 diabetes mellitus with diabetic polyneuropathy; G43.909 Migraine, unspecified, not intractable, without status migrainosus; F41.9 Anxiety disorder, unspecified; G25.81 Restless legs syndrome; E03.9 Hypothyroidism, unspecified; E66.9 Obesity, unspecified; Z88.2 Allergy status to sulfonamides; Z76.82 Awaiting organ transplant status; Z87.891 Personal history of nicotine dependence; Z91.14 Patient's other noncompliance with medication regimen; Z68.39 Body mass index [BMI] 39.0-39.9, adult
CPT/HCPCS: 36600; 49083; 70450; 71045; 72125; 72128; 72131; 74177; 76705; 80048; 80048 91; 80053; 80069; 80076; 81003; 82140; 82150 91; 82533 91; 82803; 82948; 83605; 83615 91; 83690; 83930; 83935; 84157; 84300; 84443; 84550; 85025; 85027; 85610; 87070; 87075; 87077; 87086; 87186; 87205; 87493; 88108; 88305; 89051; 93005; 93970; 97530 GO; 97530 GP; 99281; 99285; C9113; J0696; J1170; J1644; J2270; J2405; J7030; J7040; P9047

== ENCOUNTER 2018-04-09 00:49 | Emergency (ER) | payer OTHER ==
[~2018-04-09] VITALS: Ht 160 cm; Wt 104.6 kg
[~2018-04-09 00:49] MED LIST changes: +CEFTIN500 MG PO; +LACTULOSE10 GM/151 PO; +SAMSCA30 MG PO; +SPIRONOLACTONE25 MG PO; +SPIRONOLACTONE50 MG PO; +TRAMADOL HCL50 MG PO
[2018-04-09] MEDS ORDERED: OXYCODONE HCL5 MG PO (05:09)
[2018-04-09 05:48] VITALS: BP 129/80
== END 2018-04-09 07:35 ==
LOC: EME → EDBD 00:49 → EME 07:35
PROC: 2W38X1Z Immobilization of Right Upper Extremity using Splint (ICD-10-PCS; principal; 2018-04-09)
DX: S52.021A Displaced fracture of olecranon process without intraarticular extension of right ulna, initial encounter for closed fracture (principal); W06.XXXA Fall from bed, initial encounter; Y92.122 Bedroom in nursing home as the place of occurrence of the external cause; K74.60 Unspecified cirrhosis of liver; I10 Essential (primary) hypertension; E11.42 Type 2 diabetes mellitus with diabetic polyneuropathy; E78.5 Hyperlipidemia, unspecified; F31.9 Bipolar disorder, unspecified; F32.9 Major depressive disorder, single episode, unspecified; F41.9 Anxiety disorder, unspecified; Z90.49 Acquired absence of other specified parts of digestive tract; Z88.2 Allergy status to sulfonamides
CPT/HCPCS: 73060; 73080; 73090; 99281; 99283

== ENCOUNTER 2018-05-04 09:15 | Inpatient (IN) | payer OTHER ==
[~2018-05-04] VITALS: Ht 160 cm; Wt 106.9 kg
[~2018-05-04 09:15] MED LIST changes: +FAMOTIDINE40 MG PO; +GABAPENTIN600 MG PO; +OXYCODONE HCL5 MG PO; -RANITIDINE HCL300 MG PO
[2018-05-04 10:51] LABS: HEMATOCRIT 28.3 % (36.0-46.0); HEMOGLOBIN 9.5 G/DL (11.9-15.5); MCH 33.7 PG (29.0-34.0); MCHC 33.6 G/DL (30.0-36.0); MCV 100.4 FL (83-99); RBC DIS.WIDTH-CV 23.7 % (11.8-14.6); RBC DIS.WIDTH-SD 85.9 % (39-53); RED BLOOD COUNT 2.82 M/uL (3.80-5.20); WHITE BLOOD COUNT 5.6 K/uL (4.1-10.2)
[2018-05-04 11:11] LABS: APPEARANCE CLEAR ((CLEAR)); BILIRUBIN NEGATIVE; BLOOD NEGATIVE; COLOR YELLOW ((YELLOW)); GLUCOSE (STRIP) NEGATIVE; KETONES NEGATIVE; LEUKOCYTES NEGATIVE; NITRITE NEGATIVE; PROTEIN (STRIP) NEGATIVE; SPECIFIC GRAVITY 1.005 (1.000-1.030); UCUL ADDED? NO
[2018-05-04 11:23] LABS: ALBUMIN 2.5 G/DL (3.2-4.8); ALKALINE PHOSPHATASE 213 IU/L (3-129); ALT (GPT) 41 IU/L (3-49); AST (GOT) 87 IU/L (2-34); CHLORIDE 100 MEQ/L (99-109); CREATININE 0.8 MG/DL (0.6-1.3); GFR ESTIMATE (CALCULATED) > 59 mL/min/; GLUCOSE 121 mg/dL (70-99); MAGNESIUM 1.8 mg/dl (1.3-2.7); SODIUM 137 MEQ/L (136-147); TOTAL BILIRUBIN 5.6 MG/DL (0.0-1.0); TOTAL PROTEIN 5.2 G/DL (6.4-8.3); UREA NITROGEN (BUN) 9 mg/dL (9-23)
[2018-05-04 11:39] LABS: BASOPHIL (%) 0.9 % (0-1); BASOPHIL COUNT 0.1 K/uL (0-0.1); EOSINOPHIL (%) 1.3 % (0-5); EOSINOPHIL COUNT 0.1 K/uL (0-0.3); IMM.PLATELET FRACTION 10.9 (1-7); IMMATURE GRANULOCYTE (%) 0.7 % (0.0-0.7); LYMPHOCYTE (%) 22.4 % (15-42); LYMPHOCYTE COUNT 1.3 K/uL (1.0-2.8); MONOCYTE (%) 18.3 % (3-12); NEUTROPHIL (%) 56.4 % (45-76); NEUTROPHIL COUNT 3.1 K/uL (1.8-6.4); PLAT.SUFFICIENCY DECREASED; PLATELET COUNT 39 K/uL (156-360)
[2018-05-04] MEDS ORDERED: SPIRONOLACTONE25 MG PO (12:52)
[2018-05-04] MEDS ORDERED: TRAZODONE HCL50 MG PO (12:55)
[2018-05-04] MEDS ORDERED: LASIX20 MG PO (12:57)
[2018-05-04] MEDS ORDERED: QUETIAPINE FUM100 MG PO (12:58)
[2018-05-04 14:02] VITALS: BP 93/50
[2018-05-04 17:09] LABS: TYPE OF FLUID PERITONEAL
[2018-05-04 18:12] LABS: APPEARANCE HAZY-YELLOW; BODY FLUID EOSINOPHILS 0 % (0-25); BODY FLUID RBC'S 6000 /MM^3 (0-100); BODY FLUID WBC'S 162 /MM^3 (0-500); MONONUCLEAR WBC'S 80 %; POLYNUCLEAR WBC'S 20 % (0-25)
[2018-05-04 19:16] VITALS: BP 109/52
[2018-05-04 23:29] VITALS: BP 96/51
[2018-05-05 03:09] VITALS: BP 104/51
[2018-05-05 06:53] LABS: BASOPHIL (%) 1.2 % (0-1); BASOPHIL COUNT 0.1 K/uL (0-0.1); EOSINOPHIL (%) 2.6 % (0-5); EOSINOPHIL COUNT 0.2 K/uL (0-0.3); HEMATOCRIT 28.6 % (36.0-46.0); HEMOGLOBIN 9.4 G/DL (11.9-15.5); IMMATURE GRANULOCYTE (%) 0.7 % (0.0-0.7); LYMPHOCYTE COUNT 1.2 K/uL (1.0-2.8); MCH 32.8 PG (29.0-34.0); MCHC 32.9 G/DL (30.0-36.0); MCV 99.7 FL (83-99); MONOCYTE (%) 19.2 % (3-12); MONOCYTE COUNT 1.1 K/uL (0-0.8); NEUTROPHIL (%) 55.3 % (45-76); NEUTROPHIL COUNT 3.2 K/uL (1.8-6.4); PLAT.SUFFICIENCY DECREASED; RBC DIS.WIDTH-CV 23.6 % (11.8-14.6); RBC DIS.WIDTH-SD 85.7 % (39-53); RED BLOOD COUNT 2.87 M/uL (3.80-5.20); WHITE BLOOD COUNT 5.8 K/uL (4.1-10.2)
[2018-05-05 07:19] LABS: IMM.PLATELET FRACTION 13.6 (1-7)
[2018-05-05 07:36] LABS: PLATELET COUNT 53 K/uL (156-360)
[2018-05-05 08:00] VITALS: BP 105/52
[2018-05-05 08:11] LABS: ALBUMIN 2.1 G/DL (3.2-4.8); ALKALINE PHOSPHATASE 188 IU/L (3-129); ALT (GPT) 34 IU/L (3-49); AST (GOT) 74 IU/L (2-34); CHLORIDE 99 MEQ/L (99-109); CREATININE 0.8 MG/DL (0.6-1.3); DIRECT BILIRUBIN 1.7 mg/dL (0.0-0.3); GFR ESTIMATE (CALCULATED) > 59 mL/min/; GLUCOSE 101 mg/dL (70-99); POTASSIUM 4.1 MEQ/L (3.7-5.4); SODIUM 135 MEQ/L (136-147); TOTAL BILIRUBIN 4.6 MG/DL (0.0-1.0); TOTAL PROTEIN 4.4 G/DL (6.4-8.3); UREA NITROGEN (BUN) 10 mg/dL (9-23)
[2018-05-05 12:00] VITALS: BP 120/56
[2018-05-05 15:29] VITALS: BP 107/50
[2018-05-05 19:40] VITALS: BP 101/54
[2018-05-05 23:53] VITALS: BP 98/53
[2018-05-06 03:58] VITALS: BP 107/56
[2018-05-06 07:02] VITALS: BP 103/54
[2018-05-06 09:15] LABS: HEMATOCRIT 29.8 % (36.0-46.0); HEMOGLOBIN 10.1 G/DL (11.9-15.5); MCH 33.2 PG (29.0-34.0); MCHC 33.9 G/DL (30.0-36.0); PLATELET COUNT 53 K/uL (156-360); RBC DIS.WIDTH-CV 23.3 % (11.8-14.6); RBC DIS.WIDTH-SD 83.5 % (39-53); RED BLOOD COUNT 3.04 M/uL (3.80-5.20); WHITE BLOOD COUNT 10.2 K/uL (4.1-10.2)
[2018-05-06 09:31] LABS: CHLORIDE 93 MEQ/L (99-109); CREATININE 0.7 MG/DL (0.6-1.3); GFR ESTIMATE (CALCULATED) > 59 mL/min/; GLUCOSE 113 mg/dL (70-99); POTASSIUM 3.9 MEQ/L (3.7-5.4); SODIUM 130 MEQ/L (136-147); UREA NITROGEN (BUN) 11 mg/dL (9-23)
[2018-05-06 15:19] VITALS: BP 107/53
[2018-05-06 23:22] VITALS: BP 86/54
[2018-05-07 07:43] VITALS: BP 94/50
[2018-05-07 12:09] VITALS: BP 103/54
[2018-05-07] MEDS ORDERED: FUROSEMIDE40 MG PO (14:18)
[2018-05-07] MEDS ORDERED: ALDACTONE100 MG PO (14:18)
== END 2018-05-07 16:40 | DRG 442 ==
LOC: EME 09:15 → EDOF 11:53 → 5SOUTH 11:53 → ENRESERV 11:55 → 5SOUTH 13:38
PROVIDERS: Emergency Medicine; Hospitalist; Physician Assistant Medical
PROC: 0W9G3ZZ Drainage of Peritoneal Cavity, Percutaneous Approach (ICD-10-PCS; principal; 2018-05-05)
DX: K72.10 Chronic hepatic failure without coma (principal); R18.8 Other ascites; K75.81 Nonalcoholic steatohepatitis (NASH); E87.1 Hypo-osmolality and hyponatremia; E78.5 Hyperlipidemia, unspecified; E03.9 Hypothyroidism, unspecified; Z68.41 Body mass index [BMI] 40.0-44.9, adult; E66.01 Morbid (severe) obesity due to excess calories; D64.9 Anemia, unspecified; D69.59 Other secondary thrombocytopenia; F31.30 Bipolar disorder, current episode depressed, mild or moderate severity, unspecified; G89.29 Other chronic pain; E11.42 Type 2 diabetes mellitus with diabetic polyneuropathy; E88.81 Metabolic syndrome and other insulin resistance; I10 Essential (primary) hypertension; M19.90 Unspecified osteoarthritis, unspecified site; Z87.891 Personal history of nicotine dependence; S42.301D Unspecified fracture of shaft of humerus, right arm, subsequent encounter for fracture with routine healing; W01.0XXD Fall on same level from slipping, tripping and stumbling without subsequent striking against object, subsequent encounter; Z91.81 History of falling; Y92.009 Unspecified place in unspecified non-institutional (private) residence as the place of occurrence of the external cause; K74.60 Unspecified cirrhosis of liver; R62.7 Adult failure to thrive
CPT/HCPCS: 49083; 71045; 80048; 80053; 80076; 81003; 82140; 82248; 82948; 83735; 85025; 85027; 87070; 87075; 87205; 89051; 97530 GO; 97530 GP

== ENCOUNTER 2018-05-22 10:25 | Inpatient (IN) | payer OTHER ==
[~2018-05-22] VITALS: Ht 160 cm; Wt 118.0 kg
[~2018-05-22 10:25] MED LIST changes: +ALDACTONE100 MG PO; +LASIX20 MG PO; +QUETIAPINE FUM100 MG PO
[2018-05-22 11:24] LABS: BASOPHIL (%) 0.6 % (0-1); BASOPHIL COUNT 0.1 K/uL (0-0.1); EOSINOPHIL (%) 2.4 % (0-5); EOSINOPHIL COUNT 0.2 K/uL (0-0.3); HEMOGLOBIN 8.7 G/DL (11.9-15.5); IMMATURE GRANULOCYTE (%) 1.9 % (0.0-0.7); LYMPHOCYTE (%) 17.1 % (15-42); LYMPHOCYTE COUNT 1.5 K/uL (1.0-2.8); MCH 34.8 PG (29.0-34.0); MCHC 34.8 G/DL (30.0-36.0); MONOCYTE (%) 14.9 % (3-12); MONOCYTE COUNT 1.3 K/uL (0-0.8); NEUTROPHIL (%) 63.1 % (45-76); NEUTROPHIL COUNT 5.7 K/uL (1.8-6.4); RBC DIS.WIDTH-CV 21.2 % (11.8-14.6); RBC DIS.WIDTH-SD 75.7 % (39-53)
[2018-05-22 11:28] LABS: PLATELET COUNT 104 K/uL (156-360)
[2018-05-22 11:29] LABS: INTER. NORMALIZED RATIO 1.4
[2018-05-22 11:44] LABS: APPEARANCE CLOUDY ((CLEAR)); BILIRUBIN NEGATIVE; BLOOD NEGATIVE; COLOR AMBER ((YELLOW)); GLUCOSE (STRIP) NEGATIVE; KETONES NEGATIVE; LEUKOCYTES NEGATIVE; NITRITE NEGATIVE; PROTEIN (STRIP) NEGATIVE; SPECIFIC GRAVITY 1.024 (1.000-1.030)
[2018-05-22 11:47] LABS: ALBUMIN 2.4 g/dL (3.2-4.8); CHLORIDE 93 mEq/L (99-109); POTASSIUM 4.1 mEq/L (3.7-5.4); SODIUM 128 mEq/L (136-147)
[2018-05-22 11:50] LABS: GLUCOSE 163 mg/dL (70-99); TOTAL PROTEIN 5.2 g/dL (6.4-8.3)
[2018-05-22 11:51] LABS: TOTAL BILIRUBIN 4.8 mg/dL (0.0-1.0)
[2018-05-22 11:53] LABS: ALKALINE PHOSPHATASE 207 IU/L (3-129); CREATININE 0.7 mg/dL (0.6-1.3); GFR ESTIMATE (CALCULATED) > 59 mL/min/
[2018-05-22 11:54] LABS: UREA NITROGEN (BUN) 23 mg/dL (9-23)
[2018-05-22 11:55] LABS: AST (GOT) 71 IU/L (2-34); DIRECT BILIRUBIN 2.7 mg/dL (0.0-0.3)
[2018-05-22 11:56] LABS: ALT (GPT) 37 IU/L (3-49)
[2018-05-22 11:57] LABS: LIPASE 47 U/L (1.0-51.0); TROP-I INTERPRETATION NEGATIVE; TROPONIN-I < 0.01 ng/mL (0.0-0.30)
[2018-05-22 12:01] LABS: EPITHELIAL CELLS 2+ /HPF; MUCUS NONE SEEN /LPF; RED BLOOD CELLS NONE SEEN /HPF (0-5); WHITE BLOOD CELLS NONE SEEN /HPF (0-5)
[2018-05-22 12:02] LABS: BACTERIA 1+ /HPF; UCUL ADDED? NO
[2018-05-22] MEDS ORDERED: BISAC-EVAC10 MG PR (15:20)
[2018-05-22] MEDS ORDERED: FLEET ENEMA-AD118 ML PR (15:24)
[2018-05-22] MEDS ORDERED: LASIX20 MG PO (15:24)
[2018-05-22] MEDS ORDERED: MILK OF MAGN PO (15:26)
[2018-05-22] MEDS ORDERED: ZANTAC300 MG PO (15:27)
[2018-05-22] MEDS ORDERED: SODIUM CHLORIDE1 G1 PO (15:27)
[2018-05-22] MEDS ORDERED: ALDACTONE50 MG PO (15:28)
[2018-05-22] MEDS ORDERED: TYLENOL REGULA325 MG PO (15:29)
[2018-05-22 20:23] VITALS: BP 134/63
[2018-05-23] VITALS (7 sets, daily range): BP systolic 97–132; BP diastolic 52–63
[2018-05-23 07:07] LABS: CHLORIDE 93 MEQ/L (99-109); CREATININE 0.7 MG/DL (0.6-1.3); GFR ESTIMATE (CALCULATED) > 59 mL/min/; POTASSIUM 4.3 MEQ/L (3.7-5.4); SODIUM 127 MEQ/L (136-147); UREA NITROGEN (BUN) 23 mg/dL (9-23)
[2018-05-23 07:14] LABS: GLUCOSE 107 mg/dL (70-99)
[2018-05-23 15:26] LABS: TYPE OF FLUID PARACENTESIS
[2018-05-23 16:22] LABS: BODY FLUID EOSINOPHILS 0 % (0-25); BODY FLUID RBC'S 1000 /MM^3 (0-100); BODY FLUID WBC'S 87 /MM^3 (0-500); MONONUCLEAR WBC'S 58 %; POLYNUCLEAR WBC'S 42 % (0-25)
[2018-05-24 04:11] VITALS: BP 118/66
[2018-05-24 07:02] LABS: CHLORIDE 94 MEQ/L (99-109); CREATININE 0.4 MG/DL (0.6-1.3); GFR ESTIMATE (CALCULATED) > 59 mL/min/; GLUCOSE 108 mg/dL (70-99); SODIUM 128 MEQ/L (136-147); UREA NITROGEN (BUN) 20 mg/dL (9-23)
[2018-05-24 07:11] VITALS: BP 94/55
[2018-05-24 10:50] VITALS: BP 102/55
[2018-05-24 15:34] VITALS: BP 104/53
[2018-05-24 19:32] VITALS: BP 98/51
[2018-05-25 00:14] VITALS: BP 113/54
[2018-05-25 04:00] VITALS: BP 116/80
[2018-05-25 06:49] LABS: CHLORIDE 93 MEQ/L (99-109); CREATININE 0.5 MG/DL (0.6-1.3); GFR ESTIMATE (CALCULATED) > 59 mL/min/; GLUCOSE 97 mg/dL (70-99); POTASSIUM 3.6 MEQ/L (3.7-5.4); SODIUM 129 MEQ/L (136-147); UREA NITROGEN (BUN) 20 mg/dL (9-23)
[2018-05-25 07:15] VITALS: BP 112/54
[2018-05-25 11:31] VITALS: BP 115/56
[2018-05-25] MEDS ORDERED: LASIX40 MG PO (14:38)
[2018-05-25] MEDS ORDERED: ALDACTONE100 MG PO (14:39)
[2018-05-25 16:09] VITALS: BP 135/62
== END 2018-05-25 18:35 | DRG 433 ==
LOC: EME 10:25 → 5EAST 16:10 → EDOF 16:10 → ENRESERV 16:28 → 5EAST 19:38
PROVIDERS: Emergency Medicine; Internal Medicine
PROC: 0W9G3ZZ Drainage of Peritoneal Cavity, Percutaneous Approach (ICD-10-PCS; principal; 2018-05-24)
DX: K74.60 Unspecified cirrhosis of liver (principal); R18.8 Other ascites; E87.1 Hypo-osmolality and hyponatremia; K76.6 Portal hypertension; E11.42 Type 2 diabetes mellitus with diabetic polyneuropathy; E66.9 Obesity, unspecified; K76.0 Fatty (change of) liver, not elsewhere classified; G25.81 Restless legs syndrome; I10 Essential (primary) hypertension; E87.70 Fluid overload, unspecified; R10.9 Unspecified abdominal pain; F31.9 Bipolar disorder, unspecified; D64.9 Anemia, unspecified; D69.6 Thrombocytopenia, unspecified; R79.1 Abnormal coagulation profile; E78.5 Hyperlipidemia, unspecified; S52.021A Displaced fracture of olecranon process without intraarticular extension of right ulna, initial encounter for closed fracture; Z87.891 Personal history of nicotine dependence; Z90.710 Acquired absence of both cervix and uterus; Z79.4 Long term (current) use of insulin
CPT/HCPCS: 49083; 74177; 80048; 80076; 81003; 82948; 83605; 83690; 83880; 84484; 85025; 85610; 85730; 87070; 87075; 87205; 89051; 93005; 97530 GP; 99281; 99285; J1815; J1940; P9047

== ENCOUNTER 2018-05-29 06:40 | Inpatient (IN) | payer OTHER ==
[~2018-05-29] VITALS: Ht 162.6 cm; Wt 116.0 kg
[2018-05-29] VITALS (8 sets, daily range): BP systolic 103–151; BP diastolic 49–74
[~2018-05-29 06:40] MED LIST changes: +BISAC-EVAC10 MG PR; +FLEET ENEMA-AD118 ML PR; +MILK OF MAGN PO; +SODIUM CHLORIDE1 G1 PO; +TYLENOL REGULA325 MG PO; +ZANTAC300 MG PO
[2018-05-29 07:25] LABS: HEMATOCRIT 22.6 % (36.0-46.0); HEMOGLOBIN 7.8 G/DL (11.9-15.5); MCH 35.5 PG (29.0-34.0); MCHC 34.5 G/DL (30.0-36.0); MCV 102.7 FL (83-99); NRBC (%) 0.3 /100 WBC (0-0); RBC DIS.WIDTH-CV 20.2 % (11.8-14.6); RBC DIS.WIDTH-SD 75.2 % (39-53); WHITE BLOOD COUNT 7.8 K/uL (4.1-10.2)
[2018-05-29 07:28] LABS: PLATELET COUNT 96 K/uL (156-360)
[2018-05-29 07:47] LABS: CHLORIDE 93 MEQ/L (99-109); POTASSIUM 3.7 MEQ/L (3.7-5.4); SODIUM 128 MEQ/L (136-147)
[2018-05-29 07:50] LABS: TROP-I INTERPRETATION NEGATIVE; TROPONIN-I < 0.01 ng/mL (0.0-0.30)
[2018-05-29 07:52] LABS: CREATININE 0.6 MG/DL (0.6-1.3); GFR ESTIMATE (CALCULATED) > 59 mL/min/; GLUCOSE 124 mg/dL (70-99); UREA NITROGEN (BUN) 20 mg/dL (9-23)
[2018-05-29 08:00] LABS: ANISOCYTOSIS 2+; BASOPHIL (%) 0.4 % (0-1); EOSINOPHIL (%) 1.8 % (0-5); EOSINOPHIL COUNT 0.1 K/uL (0-0.3); IMMATURE GRANULOCYTE (%) 0.6 % (0.0-0.7); LYMPHOCYTE COUNT 1.5 K/uL (1.0-2.8); MACROCYTES 2+; MONOCYTE (%) 17.9 % (3-12); MONOCYTE COUNT 1.4 K/uL (0-0.8); NEUTROPHIL (%) 60.3 % (45-76); NEUTROPHIL COUNT 4.7 K/uL (1.8-6.4); POLYCHROMASIA 1+; TARGET CELLS 1+
[2018-05-29 08:12] LABS: APPEARANCE CLOUDY ((CLEAR)); BILIRUBIN NEGATIVE; BLOOD NEGATIVE; COLOR AMBER ((YELLOW)); GLUCOSE (STRIP) NEGATIVE; KETONES NEGATIVE; LEUKOCYTES MODERATE; NITRITE NEGATIVE; PROTEIN (STRIP) 30; SPECIFIC GRAVITY 1.023 (1.000-1.030)
[2018-05-29 08:56] LABS: BACTERIA 3+ /HPF
[2018-05-29 08:58] LABS: EPITHELIAL CELLS RARE /HPF
[2018-05-29 09:00] LABS: AMORPHOUS URATES CRYSTALS 2+
[2018-05-29 09:03] LABS: MUCUS NONE SEEN /LPF; RED BLOOD CELLS NONE SEEN /HPF (0-5); UCUL ADDED? YES
[2018-05-29] MEDS ORDERED: DULCOLAX10 MG PR (15:34)
[2018-05-29] MEDS ORDERED: REGLAN5 MG PO (15:39)
[2018-05-29] MEDS ORDERED: ZANTAC300 MG PO (15:43)
[2018-05-29] MEDS ORDERED: SODIUM CHLORIDE1 G1 PO (15:45)
[2018-05-29] MEDS ORDERED: ULTRAM50 MG PO (15:48)
[2018-05-29 20:29] LABS: ALBUMIN 2.6 G/DL (3.2-4.8); ALKALINE PHOSPHATASE 141 IU/L (3-129); ALT (GPT) 26 IU/L (3-49); AST (GOT) 46 IU/L (2-34); CHLORIDE 94 MEQ/L (99-109); CREATININE 0.6 MG/DL (0.6-1.3); GFR ESTIMATE (CALCULATED) > 59 mL/min/; GLUCOSE 133 mg/dL (70-99); SODIUM 129 MEQ/L (136-147); TOTAL PROTEIN 4.7 G/DL (6.4-8.3); UREA NITROGEN (BUN) 21 mg/dL (9-23)
[2018-05-29 20:50] LABS: TOTAL BILIRUBIN 7.6 MG/DL (0.0-1.0)
[2018-05-30 06:14] LABS: HEMATOCRIT 25.3 % (36.0-46.0); HEMOGLOBIN 8.6 G/DL (11.9-15.5); MCH 34.5 PG (29.0-34.0); MCV 101.6 FL (83-99); NRBC (%) 0.2 /100 WBC (0-0); PLATELET COUNT 89 K/uL (156-360); RBC DIS.WIDTH-CV 21.9 % (11.8-14.6); RBC DIS.WIDTH-SD 79.8 % (39-53); RED BLOOD COUNT 2.49 M/uL (3.80-5.20); WHITE BLOOD COUNT 9.6 K/uL (4.1-10.2)
[2018-05-30 06:40] LABS: ALBUMIN 2.3 G/DL (3.2-4.8); ALKALINE PHOSPHATASE 125 IU/L (3-129); ALT (GPT) 23 IU/L (3-49); AST (GOT) 38 IU/L (2-34); CHLORIDE 97 MEQ/L (99-109); CREATININE 0.6 MG/DL (0.6-1.3); GFR ESTIMATE (CALCULATED) > 59 mL/min/; GLUCOSE 121 mg/dL (70-99); POTASSIUM 3.9 MEQ/L (3.7-5.4); SODIUM 131 MEQ/L (136-147); TOTAL BILIRUBIN 7.1 MG/DL (0.0-1.0); TOTAL PROTEIN 4.2 G/DL (6.4-8.3); UREA NITROGEN (BUN) 23 mg/dL (9-23)
[2018-05-30 07:10] VITALS: BP 108/48
[2018-05-30 11:00] VITALS: BP 113/52
[2018-05-30 15:00] VITALS: BP 110/58
[2018-05-30 18:52] VITALS: BP 128/61
[2018-05-30 23:00] VITALS: BP 120/60
[2018-05-31 03:52] VITALS: BP 130/63
[2018-05-31 06:32] LABS: ALBUMIN 2.3 G/DL (3.2-4.8); ALKALINE PHOSPHATASE 144 IU/L (3-129); ALT (GPT) 22 IU/L (3-49); AST (GOT) 39 IU/L (2-34); CHLORIDE 99 MEQ/L (99-109); CREATININE 0.6 MG/DL (0.6-1.3); GFR ESTIMATE (CALCULATED) > 59 mL/min/; GLUCOSE 118 mg/dL (70-99); POTASSIUM 3.6 MEQ/L (3.7-5.4); SODIUM 134 MEQ/L (136-147); TOTAL BILIRUBIN 6.7 MG/DL (0.0-1.0); TOTAL PROTEIN 4.2 G/DL (6.4-8.3); UREA NITROGEN (BUN) 24 mg/dL (9-23)
[2018-05-31 06:50] VITALS: BP 109/56
[2018-05-31 11:00] VITALS: BP 117/55
[2018-05-31 15:05] VITALS: BP 121/58
[2018-05-31 23:02] VITALS: BP 119/57
[2018-06-01 05:39] LABS: HEMATOCRIT 24.6 % (36.0-46.0); HEMOGLOBIN 8.2 G/DL (11.9-15.5); MCH 34.7 PG (29.0-34.0); MCHC 33.3 G/DL (30.0-36.0); MCV 104.2 FL (83-99); PLATELET COUNT 77 K/uL (156-360); RBC DIS.WIDTH-CV 21.2 % (11.8-14.6); RBC DIS.WIDTH-SD 79.3 % (39-53); RED BLOOD COUNT 2.36 M/uL (3.80-5.20); WHITE BLOOD COUNT 7.3 K/uL (4.1-10.2)
[2018-06-01 05:59] LABS: ALBUMIN 2.2 G/DL (3.2-4.8); ALKALINE PHOSPHATASE 124 IU/L (3-129); ALT (GPT) 24 IU/L (3-49); AST (GOT) 47 IU/L (2-34); CHLORIDE 98 MEQ/L (99-109); CREATININE 0.6 MG/DL (0.6-1.3); GFR ESTIMATE (CALCULATED) > 59 mL/min/; GLUCOSE 114 mg/dL (70-99); POTASSIUM 3.7 MEQ/L (3.7-5.4); SODIUM 131 MEQ/L (136-147); TOTAL BILIRUBIN 6.2 MG/DL (0.0-1.0); TOTAL PROTEIN 4.1 G/DL (6.4-8.3); UREA NITROGEN (BUN) 20 mg/dL (9-23)
[2018-06-01 06:55] VITALS: BP 117/57
[2018-06-01 15:15] VITALS: BP 124/60
[2018-06-01 23:18] VITALS: BP 117/57
[2018-06-02 08:03] VITALS: BP 152/72
[2018-06-02 16:58] VITALS: BP 107/55
[2018-06-02 22:06] LABS: HEMATOCRIT 24.6 % (36.0-46.0); HEMOGLOBIN 8.5 G/DL (11.9-15.5); MCH 35.3 PG (29.0-34.0); MCHC 34.6 G/DL (30.0-36.0); MCV 102.1 FL (83-99); PLATELET COUNT 78 K/uL (156-360); RBC DIS.WIDTH-CV 20.8 % (11.8-14.6); RBC DIS.WIDTH-SD 74.7 % (39-53); RED BLOOD COUNT 2.41 M/uL (3.80-5.20); WHITE BLOOD COUNT 6.7 K/uL (4.1-10.2)
[2018-06-02 22:12] LABS: INTER. NORMALIZED RATIO 1.6
[2018-06-02 22:15] LABS: ALBUMIN 2.3 g/dL (3.2-4.8); CHLORIDE 98 mEq/L (99-109); POTASSIUM 4.2 mEq/L (3.7-5.4); SODIUM 128 mEq/L (136-147)
[2018-06-02 22:17] LABS: GLUCOSE 141 mg/dL (70-99)
[2018-06-02 22:18] LABS: TOTAL PROTEIN 4.5 g/dL (6.4-8.3)
[2018-06-02 22:19] LABS: TOTAL BILIRUBIN 5.8 mg/dL (0.0-1.0)
[2018-06-02 22:21] LABS: ALKALINE PHOSPHATASE 163 IU/L (3-129); CREATININE 0.6 mg/dL (0.6-1.3); GFR ESTIMATE (CALCULATED) > 59 mL/min/
[2018-06-02 22:22] LABS: UREA NITROGEN (BUN) 21 mg/dL (9-23)
[2018-06-02 22:23] LABS: AST (GOT) 65 IU/L (2-34)
[2018-06-02 22:24] LABS: ALT (GPT) 34 IU/L (3-49)
[2018-06-02 23:12] VITALS: BP 133/61
[2018-06-03 06:24] LABS: HEMATOCRIT 24.2 % (36.0-46.0); HEMOGLOBIN 8.2 G/DL (11.9-15.5); MCH 35.3 PG (29.0-34.0); MCHC 33.9 G/DL (30.0-36.0); MCV 104.3 FL (83-99); PLATELET COUNT 77 K/uL (156-360); RBC DIS.WIDTH-CV 20.8 % (11.8-14.6); RBC DIS.WIDTH-SD 77.7 % (39-53); RED BLOOD COUNT 2.32 M/uL (3.80-5.20); WHITE BLOOD COUNT 6.8 K/uL (4.1-10.2)
[2018-06-03 06:43] LABS: ALBUMIN 2.2 G/DL (3.2-4.8); ALKALINE PHOSPHATASE 146 IU/L (3-129); ALT (GPT) 27 IU/L (3-49); AST (GOT) 52 IU/L (2-34); CHLORIDE 96 MEQ/L (99-109); CREATININE 0.6 MG/DL (0.6-1.3); GFR ESTIMATE (CALCULATED) > 59 mL/min/; GLUCOSE 119 mg/dL (70-99); POTASSIUM 4.1 MEQ/L (3.7-5.4); SODIUM 128 MEQ/L (136-147); TOTAL PROTEIN 4.1 G/DL (6.4-8.3); UREA NITROGEN (BUN) 18 mg/dL (9-23)
[2018-06-03 07:26] VITALS: BP 117/63
[2018-06-03 16:56] VITALS: BP 130/60
[2018-06-03 23:10] VITALS: BP 136/65
[2018-06-04 07:12] VITALS: BP 113/59
[2018-06-04 15:42] VITALS: BP 141/64
[2018-06-05 06:01] LABS: HEMATOCRIT 26.7 % (36.0-46.0); HEMOGLOBIN 9.3 G/DL (11.9-15.5); MCH 35.5 PG (29.0-34.0); MCHC 34.8 G/DL (30.0-36.0); MCV 101.9 FL (83-99); PLATELET COUNT 79 K/uL (156-360); RBC DIS.WIDTH-CV 19.8 % (11.8-14.6); RBC DIS.WIDTH-SD 72.5 % (39-53); RED BLOOD COUNT 2.62 M/uL (3.80-5.20)
[2018-06-05 06:16] LABS: ALBUMIN 2.2 G/DL (3.2-4.8); ALKALINE PHOSPHATASE 142 IU/L (3-129); ALT (GPT) 31 IU/L (3-49); AST (GOT) 57 IU/L (2-34); CHLORIDE 93 MEQ/L (99-109); CREATININE 0.6 MG/DL (0.6-1.3); GFR ESTIMATE (CALCULATED) > 59 mL/min/; GLUCOSE 132 mg/dL (70-99); POTASSIUM 4.5 MEQ/L (3.7-5.4); SODIUM 124 MEQ/L (136-147); TOTAL BILIRUBIN 7.2 MG/DL (0.0-1.0); TOTAL PROTEIN 4.3 G/DL (6.4-8.3); UREA NITROGEN (BUN) 14 mg/dL (9-23)
[2018-06-05 07:25] VITALS: BP 121/61
[2018-06-05 15:00] VITALS: BP 136/59
[2018-06-05 23:36] VITALS: BP 116/57
[2018-06-06 06:28] LABS: ALBUMIN 2.2 G/DL (3.2-4.8); ALKALINE PHOSPHATASE 145 IU/L (3-129); ALT (GPT) 31 IU/L (3-49); AST (GOT) 57 IU/L (2-34); CHLORIDE 93 MEQ/L (99-109); CREATININE 0.6 MG/DL (0.6-1.3); GFR ESTIMATE (CALCULATED) > 59 mL/min/; GLUCOSE 126 mg/dL (70-99); POTASSIUM 4.1 MEQ/L (3.7-5.4); SODIUM 126 MEQ/L (136-147); TOTAL BILIRUBIN 6.6 MG/DL (0.0-1.0); TOTAL PROTEIN 4.3 G/DL (6.4-8.3); UREA NITROGEN (BUN) 15 mg/dL (9-23)
[2018-06-06 08:21] VITALS: BP 120/59
[2018-06-06 15:29] VITALS: BP 147/67
[2018-06-06 17:02] VITALS: BP 143/67
[2018-06-07 00:29] VITALS: BP 112/67
[2018-06-07 06:48] LABS: ALKALINE PHOSPHATASE 124 IU/L (3-129); ALT (GPT) 31 IU/L (3-49); AST (GOT) 63 IU/L (2-34); CHLORIDE 95 MEQ/L (99-109); CREATININE 0.6 MG/DL (0.6-1.3); GFR ESTIMATE (CALCULATED) > 59 mL/min/; GLUCOSE 110 mg/dL (70-99); SODIUM 124 MEQ/L (136-147); UREA NITROGEN (BUN) 15 mg/dL (9-23)
[2018-06-07 07:13] VITALS: BP 113/59
[2018-06-07 13:19] LABS: TROP-I INTERPRETATION NEGATIVE; TROPONIN-I < 0.01 ng/mL (0.0-0.30)
[2018-06-07 14:57] VITALS: BP 117/58
[2018-06-07 20:44] LABS: TROP-I INTERPRETATION NEGATIVE; TROPONIN-I < 0.01 ng/mL (0.0-0.30)
[2018-06-07 23:16] VITALS: BP 129/55
[2018-06-08 05:33] LABS: TROP-I INTERPRETATION NEGATIVE; TROPONIN-I < 0.01 ng/mL (0.0-0.30)
[2018-06-08 06:55] VITALS: BP 104/53
[2018-06-08 08:33] LABS: CHLORIDE 93 MEQ/L (99-109); POTASSIUM 3.9 MEQ/L (3.7-5.4); SODIUM 123 MEQ/L (136-147)
[2018-06-08 08:39] LABS: CREATININE 0.7 MG/DL (0.6-1.3); GFR ESTIMATE (CALCULATED) > 59 mL/min/; GLUCOSE 119 mg/dL (70-99); UREA NITROGEN (BUN) 15 mg/dL (9-23)
[2018-06-08 08:46] LABS: THYROTROPIN (TSH) 48.6 MIU/L (0.4-5.5)
[2018-06-08 12:24] LABS: CHLORIDE 93 mEq/L (99-109); POTASSIUM 3.7 mEq/L (3.7-5.4); SODIUM 126 mEq/L (136-147)
[2018-06-08 12:26] LABS: GLUCOSE 123 mg/dL (70-99)
[2018-06-08 12:30] LABS: CREATININE 0.7 mg/dL (0.6-1.3); GFR ESTIMATE (CALCULATED) > 59 mL/min/
[2018-06-08 12:31] LABS: UREA NITROGEN (BUN) 19 mg/dL (9-23)
[2018-06-08 15:02] VITALS: BP 126/61
[2018-06-09] VITALS (9 sets, daily range): BP systolic 92–125; BP diastolic 51–67
[2018-06-09 05:24] LABS: BASOPHIL (%) 0.8 % (0-1); EOSINOPHIL (%) 3.3 % (0-5); EOSINOPHIL COUNT 0.2 K/uL (0-0.3); HEMATOCRIT 19.1 % (36.0-46.0); IMMATURE GRANULOCYTE (%) 1.6 % (0.0-0.7); LYMPHOCYTE (%) 24.9 % (15-42); LYMPHOCYTE COUNT 1.3 K/uL (1.0-2.8); MCH 35.3 PG (29.0-34.0); MCHC 34.6 G/DL (30.0-36.0); MCV 102.1 FL (83-99); MONOCYTE (%) 21.3 % (3-12); MONOCYTE COUNT 1.1 K/uL (0-0.8); NEUTROPHIL (%) 48.1 % (45-76); NEUTROPHIL COUNT 2.5 K/uL (1.8-6.4); PLATELET COUNT 62 K/uL (156-360); RBC DIS.WIDTH-CV 19.3 % (11.8-14.6); RBC DIS.WIDTH-SD 72.1 % (39-53); WHITE BLOOD COUNT 5.1 K/uL (4.1-10.2)
[2018-06-09 05:26] LABS: HEMOGLOBIN 6.6 G/DL (11.9-15.5); RED BLOOD COUNT 1.87 M/uL (3.80-5.20)
[2018-06-09 05:42] LABS: ALBUMIN 2.7 G/DL (3.2-4.8); ALKALINE PHOSPHATASE 112 IU/L (3-129); ALT (GPT) 27 IU/L (3-49); AST (GOT) 56 IU/L (2-34); CHLORIDE 94 MEQ/L (99-109); CREATININE 0.5 MG/DL (0.6-1.3); GFR ESTIMATE (CALCULATED) > 59 mL/min/; POTASSIUM 3.7 MEQ/L (3.7-5.4); SODIUM 126 MEQ/L (136-147); TOTAL BILIRUBIN 5.1 MG/DL (0.0-1.0); TOTAL PROTEIN 4.2 G/DL (6.4-8.3); UREA NITROGEN (BUN) 14 mg/dL (9-23)
[2018-06-09 05:55] LABS: GLUCOSE 88 mg/dL (70-99)
[2018-06-10] VITALS (8 sets, daily range): BP systolic 84–110; BP diastolic 44–59
[2018-06-10 06:52] LABS: HEMATOCRIT 23.6 % (36.0-46.0); HEMOGLOBIN 8.1 G/DL (11.9-15.5); MCHC 34.3 G/DL (30.0-36.0); MCV 99.2 FL (83-99); PLATELET COUNT 57 K/uL (156-360); RBC DIS.WIDTH-CV 20.2 % (11.8-14.6); RBC DIS.WIDTH-SD 71.9 % (39-53); WHITE BLOOD COUNT 5.1 K/uL (4.1-10.2)
[2018-06-10 06:59] LABS: RED BLOOD COUNT 2.38 M/uL (3.80-5.20)
[2018-06-10 07:31] LABS: ALBUMIN 2.8 G/DL (3.2-4.8); ALKALINE PHOSPHATASE 105 IU/L (3-129); ALT (GPT) 32 IU/L (3-49); AST (GOT) 71 IU/L (2-34); CHLORIDE 94 MEQ/L (99-109); CREATININE 0.6 MG/DL (0.6-1.3); GFR ESTIMATE (CALCULATED) > 59 mL/min/; GLUCOSE 92 mg/dL (70-99); POTASSIUM 3.5 MEQ/L (3.7-5.4); SODIUM 126 MEQ/L (136-147); TOTAL PROTEIN 4.4 G/DL (6.4-8.3); UREA NITROGEN (BUN) 14 mg/dL (9-23)
[2018-06-10 07:35] LABS: TOTAL BILIRUBIN 6.4 MG/DL (0.0-1.0)
[2018-06-11 00:33] VITALS: BP 106/56
[2018-06-11 06:23] LABS: BASOPHIL COUNT 0.1 K/uL (0-0.1); EOSINOPHIL (%) 2.4 % (0-5); EOSINOPHIL COUNT 0.1 K/uL (0-0.3); HEMATOCRIT 27.7 % (36.0-46.0); HEMOGLOBIN 9.7 G/DL (11.9-15.5); IMMATURE GRANULOCYTE (%) 0.6 % (0.0-0.7); LYMPHOCYTE (%) 20.2 % (15-42); MCH 33.3 PG (29.0-34.0); MONOCYTE (%) 18.6 % (3-12); MONOCYTE COUNT 0.9 K/uL (0-0.8); NEUTROPHIL (%) 57.2 % (45-76); NEUTROPHIL COUNT 2.8 K/uL (1.8-6.4); PLATELET COUNT 56 K/uL (156-360); RBC DIS.WIDTH-CV 20.9 % (11.8-14.6); RBC DIS.WIDTH-SD 71.1 % (39-53); WHITE BLOOD COUNT 4.9 K/uL (4.1-10.2)
[2018-06-11 06:25] LABS: MCV 95.2 FL (83-99); RED BLOOD COUNT 2.91 M/uL (3.80-5.20)
[2018-06-11 07:05] VITALS: BP 128/58
[2018-06-11 07:48] LABS: ALBUMIN 2.8 G/DL (3.2-4.8); ALKALINE PHOSPHATASE 106 IU/L (3-129); ALT (GPT) 34 IU/L (3-49); AST (GOT) 67 IU/L (2-34); CHLORIDE 98 MEQ/L (99-109); CREATININE 0.7 MG/DL (0.6-1.3); GFR ESTIMATE (CALCULATED) > 59 mL/min/; GLUCOSE 95 mg/dL (70-99); MAGNESIUM 1.4 mg/dl (1.3-2.7); PHOSPHORUS 2.7 mg/dL (2.5-4.9); POTASSIUM 3.6 MEQ/L (3.7-5.4); SODIUM 130 MEQ/L (136-147); TOTAL PROTEIN 4.5 G/DL (6.4-8.3); UREA NITROGEN (BUN) 13 mg/dL (9-23)
[2018-06-11 07:49] LABS: TOTAL BILIRUBIN 8.3 MG/DL (0.0-1.0)
[2018-06-11 15:00] VITALS: BP 115/57
[2018-06-12 00:41] VITALS: BP 113/56
[2018-06-12 06:08] LABS: BASOPHIL (%) 1.2 % (0-1); BASOPHIL COUNT 0.1 K/uL (0-0.1); EOSINOPHIL (%) 3.2 % (0-5); EOSINOPHIL COUNT 0.2 K/uL (0-0.3); HEMATOCRIT 27.7 % (36.0-46.0); HEMOGLOBIN 9.5 G/DL (11.9-15.5); IMMATURE GRANULOCYTE (%) 0.6 % (0.0-0.7); LYMPHOCYTE COUNT 1.2 K/uL (1.0-2.8); MCHC 34.3 G/DL (30.0-36.0); MCV 96.2 FL (83-99); MONOCYTE (%) 16.6 % (3-12); MONOCYTE COUNT 0.8 K/uL (0-0.8); NEUTROPHIL (%) 54.4 % (45-76); NEUTROPHIL COUNT 2.8 K/uL (1.8-6.4); PLATELET COUNT 58 K/uL (156-360); RBC DIS.WIDTH-CV 20.3 % (11.8-14.6); RBC DIS.WIDTH-SD 70.6 % (39-53); RED BLOOD COUNT 2.88 M/uL (3.80-5.20); WHITE BLOOD COUNT 5.1 K/uL (4.1-10.2)
[2018-06-12 06:30] LABS: ALBUMIN 2.8 G/DL (3.2-4.8); ALKALINE PHOSPHATASE 130 IU/L (3-129); ALT (GPT) 28 IU/L (3-49); AST (GOT) 53 IU/L (2-34); CHLORIDE 98 MEQ/L (99-109); CREATININE 0.6 MG/DL (0.6-1.3); GFR ESTIMATE (CALCULATED) > 59 mL/min/; GLUCOSE 81 mg/dL (70-99); POTASSIUM 3.5 MEQ/L (3.7-5.4); SODIUM 132 MEQ/L (136-147); TOTAL BILIRUBIN 7.2 MG/DL (0.0-1.0); TOTAL PROTEIN 4.1 G/DL (6.4-8.3); UREA NITROGEN (BUN) 12 mg/dL (9-23)
[2018-06-12 07:00] VITALS: BP 101/54
[2018-06-12] MEDS ORDERED: Chronulac,Cephulac,E PO (08:15)
[2018-06-12] MEDS ORDERED: BUMETANIDE1 MG PO (08:15)
[2018-06-12] MEDS ORDERED: SENNA LAX8.6 MG PO (08:15)
== END 2018-06-12 12:37 | DRG 442 ==
LOC: EME → EDBD 06:40 → 5EAST 08:29 → EDOF 08:29 → ENRESERV 08:39 → 5EAST 09:41
PROVIDERS: Emergency Medicine; Family Medicine; Internal Medicine
PROC: 30233N1 Transfusion of Nonautologous Red Blood Cells into Peripheral Vein, Percutaneous Approach (ICD-10-PCS; principal; 2018-05-29)
PROC: 0W9G3ZZ Drainage of Peritoneal Cavity, Percutaneous Approach (ICD-10-PCS; 2018-06-02)
DX: K72.00 Acute and subacute hepatic failure without coma (principal); D50.0 Iron deficiency anemia secondary to blood loss (chronic); K74.60 Unspecified cirrhosis of liver; R18.8 Other ascites; E87.1 Hypo-osmolality and hyponatremia; N30.90 Cystitis, unspecified without hematuria; B96.1 Klebsiella pneumoniae [K. pneumoniae] as the cause of diseases classified elsewhere; D68.9 Coagulation defect, unspecified; D69.6 Thrombocytopenia, unspecified; K75.81 Nonalcoholic steatohepatitis (NASH); K76.6 Portal hypertension; K31.89 Other diseases of stomach and duodenum; I44.0 Atrioventricular block, first degree; I10 Essential (primary) hypertension; E11.9 Type 2 diabetes mellitus without complications; K21.9 Gastro-esophageal reflux disease without esophagitis; E78.5 Hyperlipidemia, unspecified; M19.90 Unspecified osteoarthritis, unspecified site; K59.09 Other constipation; E03.9 Hypothyroidism, unspecified; E66.9 Obesity, unspecified; Z68.41 Body mass index [BMI] 40.0-44.9, adult; S52.021D Displaced fracture of olecranon process without intraarticular extension of right ulna, subsequent encounter for closed fracture with routine healing; G25.81 Restless legs syndrome; F31.9 Bipolar disorder, unspecified; Z87.891 Personal history of nicotine dependence; Z90.710 Acquired absence of both cervix and uterus
CPT/HCPCS: 49083; 71045; 80048; 80048 91; 80053; 81003; 82140; 82272; 82533 91; 82948; 83605; 83735; 84100; 84300; 84439; 84443; 84484; 85025; 85027; 85610; 85730; 86850; 86900; 86901; 86920; 87040; 87077; 87086; 87186; 87801; 93005; 97530 GP; 99281; 99285; C9113; J1815; J1940; J3370; J7030; P9016; P9047

== ENCOUNTER → 2018-06-17 | Outpatient (CLI) | payer OTHER ==
[~2018-06-17] MED LIST changes: +BUMETANIDE1 MG PO; +Chronulac,Cephulac,E PO; +DULCOLAX10 MG PR; +SENNA LAX8.6 MG PO; +ULTRAM50 MG PO
== END ==
LOC: RAD 08:21
PROC: 0W9G3ZZ Drainage of Peritoneal Cavity, Percutaneous Approach (ICD-10-PCS; principal; 2018-06-17)
DX: R18.8 Other ascites (principal)
CPT/HCPCS: 49083